=== PATIENT | male | born 1995 | race Caucasian/White ===

== ENCOUNTER 2016-12-12 11:09 | Day surgery (SDC) | payer OTHER ==
[~2016-12-12] VITALS: Ht 170.2 cm; Wt 65.8 kg
[~2016-12-12 11:09] MED LIST: CIPR-193 PO; FER325 PO; METO-448 PO; NIFE30TA2 PO; PUMP INSULIN MC
[2016-12-12 11:55] VITALS: Ht 170.2 cm; Wt 65.8 kg
[2016-12-12] MEDS ORDERED: LOPE2CAP PO (11:58)
[2016-12-12 12:15] VITALS: BP 102/58; PULSE 85; RESP 14
[2016-12-12] MEDS ORDERED: PROPOFOL 20 ML ONE (12:17)
[2016-12-12] MEDS ORDERED: FENTAnyl 50 MCG/ML VIAL ONE (12:18)
[2016-12-12 13:15] VITALS: BP 100/69; PULSE 79; RESP 16
--- NOTE | 2016-12-12 15:13 | GILP ---
DATE OF PROCEDURE: 12/12/2016 NAME OF PROCEDURE: Esophagogastroduodenoscopy and biopsy. SURGEON: Sarah Delgado MD PREOPERATIVE DIAGNOSES: 1. Vomiting. 2. Chronic diarrhea. POSTOPERATIVE DIAGNOSES: 1. Reflux esophagitis. 2. Gastritis. 3. Gastric stasis with liquid in the stomach. 4. Gastric mucosal biopsies were taken for Helicobacter pylori test. 5. Small bowel biopsies were taken to rule out celiac disease. INDICATION FOR THE PROCEDURE: Mr. Viktor Lemons is a 21-year-old male patient who had history of vomit ing and chronic diarrhea. The patient underwent colonoscopy at some other placed and no abnormality was detected. The patient was scheduled for endoscopy for further evaluation. The procedure and possible complications are well explained to the patient, he understood and consen wilbert to the procedure. DESCRIPTION OF PROCEDURE: Under the influence of anesthesia, the gastroscope was carefully introduc ed into the esophagus and under direct vision, it was advanced to the stomach and through the pyloru s into the duodenal bulb and descending duodenum. FINDINGS: ESOPHAGUS: The patient had reflux esophagitis with erosions. STOMACH: He had gastritis and gastric stasis in the stomach with retained fluid. Gastric mucosal b iopsies were taken for H. pylori test. DUODENUM: Normal. Small bowel biopsies were taken to rule out celiac disease. He tolerated the procedure very well and there was no complication from the procedure. At the end o f the procedure, he was awake with stable vital signs and he was discharged home to the care of his family. IMPRESSION: 1. Reflux esophagitis with erosions. 2. Gastritis with gastric stasis and fluid in the stomach. 3. Gastric mucosal biopsies were taken for Helicobacter pylori test. 4. Small bowel biopsies were taken to rule out celiac disease. PLAN: 1. Omeprazole 40 mg p.o. q.a.m. 2. Await histopathology reports. 3. If the patient continues to vomit, it may be due to gastroparesis and patient may need solid gas tric emptying study. Dictated By: SARAH HOWARD/ODESSA Conf#: [id number] DID#: [id number]
--- NOTE | 2016-12-13 10:47 | CONS ---
DATE OF ADMISSION: 12/12/2016 DATE OF CONSULTATION: Dear Dr. Sullivan: I thank you very much for this kind referral. HISTORY OF PRESENT ILLNESS: Mr. Joseph Lemons is a 21-year-old male patient who has been referred to me for further evaluation of vomiting and chronic diarrhea. The patient states he has got frequent episodes of vomiting, not have any abdominal pain. There is no history of peptic ulcer disease. He is not taking any nonsteroidal anti-inflammatory agents. His appetite has been poor and he states that he has been losing weight. There is no history of gallstones. He does not have any fever, chi lls or jaundice. There is no history of liver disease. The patient also complains of chronic diarr hea. There is no history of rectal bleeding. There is no history of inflammatory bowel disease. T he patient states he had a colonoscopy done 2 years ago and no abnormality was detected. He is not a hypertensive. He has diabetes and he is on insulin pump. There is no history of heart disease or lung problem. Patient has got chronic kidney disease. SOCIAL HISTORY: He is a smoker. He denies alcohol abuse. FAMILY HISTORY: Negative for gastrointestinal tract neoplasm. ALLERGIES: THERE IS NO HISTORY OF SIGNIFICANT DRUG ALLERGY. MEDICATIONS: 1. Insulin 2. Imodium. PHYSICAL EXAMINATION: VITAL SIGNS: He is 5 feet 7 inches tall and he weighs 140 pounds. HEART: Examination of the heart reveals normal first and second heart sounds. LUNGS: Clear. ABDOMEN: Soft without any distention. Liver and spleen are not palpable. There are no masses. Th ere is no focal tenderness. Normal bowel sounds are heard. CENTRAL NERVOUS SYSTEM: Does not reveal any focal neurological deficit. IMPRESSION: 1. Vomiting. 2. Chronic diarrhea. 3. The patient states he had colonoscopy 2 years ago and no abnormality was found. 4. Diabetes mellitus. 5. The patient is on insulin pump. 6. Chronic kidney disease. 7. The patient is a smoker. PLAN: Upper endoscopy for further evaluation of vomiting. At the time of upper endoscopy, small bowel biopsies will be taken to rule out celiac disease. The patient will need monitored anesthesia care for the procedure. The procedure and possible complications are well explained to the patient and his mother; they unde rstand and consent to the procedure. I thank you once again. With warmest personal regards, Dictated By: AMA HOWARD/ODESSA Conf#: [id number] DID#: [id number] CC: AMA VINCENT MD;*End*
== END 2016-12-12 15:24 | disposition home or self-care (01) ==
LOC: GIL 11:09
PROVIDERS: ATTEND Internal Medicine Gastroenterology
DX: K21.0 Gastro-esophageal reflux disease with esophagitis (principal); K29.60 Other gastritis without bleeding; E11.9 Type 2 diabetes mellitus without complications; Z79.4 Long term (current) use of insulin; Z96.41 Presence of insulin pump (external) (internal); F17.200 Nicotine dependence, unspecified, uncomplicated
CPT/HCPCS: 43239; 82962; 87081; 88305; J3010; Z7610

== ENCOUNTER 2017-02-22 06:29 | Day surgery (SDC) | payer OTHER ==
[2017-02-21 08:41] VITALS: BMI 21.6
[2017-02-22] VITALS (10 sets, daily range): BP systolic 91–146; BP diastolic 24–80; PULSE 76–98; RESP 18–24; Ht 170.2 cm; Wt 64.5 kg
[~2017-02-22] VITALS: Ht 170.2 cm; Wt 64.5 kg
[~2017-02-22 06:29] MED LIST changes: -CIPR-193 PO; +LOPE2CAP PO; -METO-448 PO; -NIFE30TA2 PO; +RENAVITE
--- NOTE | 2017-02-22 07:19 | HPN ---
Date/Time of Note Date/Time of Note DATE: 02/22/17 TIME: 07:19 Interval H&P Admission Note Pt. seen H&P reviewed: No system changes ESEQUIEL RUSHING MD February 22, 2017 07:19
[2017-02-22 07:27] LABS: ADD SCAN DIFF NO
--- NOTE | 2017-02-22 07:37 | RADRPT ---
PROCEDURE: XR Chest. CLINICAL INDICATION: Preop TECHNIQUE: A single AP view of the chest was obtained. COMPARISON: Chest x-ray dated 06/18/2016 FINDINGS: There is a right chest Perma-Cath with tip near the cavoatrial junction. No focal airspace opacification, pleural effusion or pneumothorax is seen. The cardiomediastinal si lhouette is within normal limits for size. The osseous structures are unremarkable. IMPRESSION: 1. No radiographic evidence of acute cardiopulmonary disease. 2. Right chest Perma-Cath with tip near the cavoatrial junction. RPTAT: HH .Dorina Rubio MD, MD Date Time Electronically viewed and signed by .Dorina Rubio MD, on 02/22/2017 07:36 .Estrellita/
[2017-02-22] MEDS ORDERED: LIDOCAINE 1% (MPF) 30 ML INJ ONE (07:40)
[2017-02-22] MEDS ORDERED: HEPARIN 1000 UNITS/ML 10 ML INJ ONE (07:40)
[2017-02-22] MEDS ORDERED: GELATIN SIZE 100 SPONGE ONE (07:40)
[2017-02-22] MEDS ORDERED: THROMBIN 5000 UNIT VIAL ONE (07:40)
[2017-02-22 07:47] LABS: INR 1.02; PARTIAL THROMBOPLASTIN TIME 28.5 Sec (25.0-35.0); PROTIME 13.4 Sec (12.2-14.2)
[2017-02-22 07:50] LABS: ALBUMIN 4.1 g/dl (3.3-4.9); ALBUMIN/GLOBULIN RATIO 1.13; CALCIUM 9.3 mg/dl (8.4-10.2); CREATININE 3.69 mg/dl (0.61-1.24); POTASSIUM 5.1 mmol/L (3.5-5.1); TOTAL PROTEIN 7.7 g/dl (6.1-8.1)
[2017-02-22] MEDS ORDERED: SODI650T PO (07:50)
[2017-02-22 07:52] LABS: BASOPHIL # 0.1 10^3/ul (0.0-0.1); BASOPHILS % 0.5 % (0.0-2.0); EOSINOPHILS # 0.3 10^3/ul (0.0-0.5); EOSINOPHILS % 2.9 % (0.0-7.0); HEMATOCRIT 32.8 % (42.0-52.0); HEMOGLOBIN 10.4 g/dl (14.0-18.0); LYMPHOCYTES # 1.7 10^3/ul (0.8-2.9); LYMPHOCYTES % 15.4 % (15.0-51.0); MEAN CORPUSCULAR HEMOGLOBIN 30.8 pg (29.0-33.0); MEAN CORPUSCULAR HGB CONC 31.7 g/dl (32.0-37.0); MEAN PLATELET VOLUME 10.1 fl (7.4-10.4); MONOCYTE # 0.7 10^3/ul (0.3-0.9); MONOCYTES % 6.4 % (0.0-11.0); NEUTROPHIL # 8.3 10^3/ul (1.6-7.5); NEUTROPHILS % 74.5 % (39.0-77.0); PLATELET COUNT 227 10^3/UL (140-415); RED BLOOD COUNT 3.38 10^6/ul (4.70-6.10); RED CELL DISTRIBUTION WIDTH 14.6 % (11.5-14.5); WHITE BLOOD COUNT 11.1 10^3/ul (4.8-10.8)
[2017-02-22] MEDS ORDERED: MIDAZOLAM 1 MG/ML 2 ML INJ ONE (07:53)
[2017-02-22] MEDS ORDERED: LIDOCAINE 1% (MDV) 20 ML INJ ONE (07:53)
[2017-02-22] MEDS ORDERED: PROPOFOL 100 ML ONE (07:53)
[2017-02-22] MEDS ORDERED: ROPIVACAINE 0.5 % 30 ML VIAL ONE (07:54)
[2017-02-22] MEDS ORDERED: LIDOCAINE 1% (MPF) 30 ML INJ INJ ONE (08:00)
[2017-02-22] MEDS ORDERED: MEPERIDINE 25 MG INJ IV PRN (08:00)
[2017-02-22] MEDS ORDERED: HEPARIN 1000 UNITS/ML 10 ML INJ IRR ONE (08:00)
[2017-02-22] MEDS ORDERED: PROCHLORPERAZINE 10 MG INJ IV PRN (08:00)
[2017-02-22] MEDS ORDERED: DIPHENHYDRAMINE 50 MG INJ IV PRN (08:00)
[2017-02-22] MEDS ORDERED: EPHEDrine SULFATE 50 MG/5 ML SYG IV PRN (08:00)
[2017-02-22] MEDS ORDERED: OXYCODONE/ACETAMINOPHEN (5/325) TAB PO PRN ×2 (08:00)
[2017-02-22] MEDS ORDERED: ONDANSETRON 4 MG INJ IV PRN (08:00)
[2017-02-22] MEDS ORDERED: hydrALAzine 20 MG INJ IV PRN (08:00)
[2017-02-22] MEDS ORDERED: HYDROmorphONE (0.2 MG/ML) 10ML SYG IV PRN (08:00)
[2017-02-22] MEDS ORDERED: THROMBIN 5000 UNIT VIAL TOP ONE (08:00)
[2017-02-22] MEDS ORDERED: LABETALOL HCL 20MG INJ IV PRN (08:00)
[2017-02-22] MEDS ORDERED: FENTAnyl 50 MCG/ML VIAL IV PRN (08:00)
[2017-02-22] MEDS ORDERED: GELATIN SIZE 100 SPONGE TOP ONE (08:00)
[2017-02-22] MEDS ORDERED: INSULIN ASPART [NOVOLOG] 3 ML PEN SC ONE ×2 (08:00)
[2017-02-22] MEDS ORDERED: ONDANSETRON 4 MG INJ ONE (08:33)
[2017-02-22] MEDS ORDERED: METOCLOPRAMIDE 10 MG INJ ONE (08:33)
[2017-02-22] MEDS ORDERED: CEFAZOLIN 1 GM INJ ONE (08:33)
--- NOTE | 2017-02-22 10:16 | OPR ---
DATE OF OPERATION: 02/22/2017 PREOPERATIVE DIAGNOSIS: End-stage renal disease. POSTOPERATIVE DIAGNOSIS: End-stage renal disease. PROCEDURE PERFORMED: Creation of left radiocephalic AV fistula. SURGEON: Esequiel Almanzar MD ANESTHESIA: Local with scalene block. ESTIMATED BLOOD LOSS: Minimal. COMPLICATIONS: No intraprocedural complications. INDICATIONS: A 22-year-old gentleman with end-stage renal disease on dialysis. He will need ongoin g hemodialysis in the future. I vein mapped his left arm. He has a good cephalic vein in the forea rm and a good basilic vein in the upper arm. The cephalic vein in the upper arm is not visible. Th e radial artery is small but patent and soft and did not appear diseased. I decided to do a radioce phalic fistula hoping the radial artery with dilate with increased flow. DESCRIPTION OF PROCEDURE: The patient was brought to the operating room and placed on the table in supine position. After the block was placed, left arm was prepped and draped in the usual sterile f ashion. I had marked the cephalic vein in the distal forearm as well as radial artery and made a cu rvilinear incision beginning distally over the cephalic vein and extending more proximally onto the radial artery. I divided the subcutaneous tissues using electrocautery and carefully dissected out the cephalic vein, ligated the distal branches, and divided it. I clipped off the more lateral of t he branches. I then dissected out the radial artery. It was small to begin with, and when it went into spasm, it was really tiny; a very, very small vessel, but patent. Once I exposed it, I clamped it proximally and distally, made about 1 cm long anterior arteriotomy, spatulated the end of the ce phalic vein to fit the arteriotomy, and anastomosed the end of the vein to the side of the artery us ing 6-0 Prolene suture in a running standard vascular surgical fashion. I closed the anastomosis. There was good flow. The spasm began to relieve. I could feel a pulse in the cephalic vein when I compressed it. It was not a real strong thrill, but when I compressed the vein, I could feel pulsat ion in the artery. The spasm was just relieving. There was good hemostasis. I closed the skin inc ision in 2 layers using an inner layer of 3-0 Vicryl and an outer layer of 4-0 Monocryl subcuticular sutures. Sterile dressing was applied. The patient was transferred to the recovery room in stable condition. He tolerated the procedure well without any complication. Dictated By: ESEQUIEL CORONEL/ODESSA Conf#: [id number] DID#: [id number] CC: DEREJE JOHNS MD;*EndCC*
--- NOTE | 2017-02-22 11:29 | RADRPT ---
Vent Rate: 97 bpm RR Interval: 0 msec [place] Interval: 148 msec QRS Duration: 92 msec QT Interval: 350 msec QTC Interval: 444 msec P-R-T [place]: 48 - 97 - 52 degrees Normal sinus rhythm Rightward axis Incomplete right bundle branch block Borderline ECG Electronically Signed By: [place] [id number]
--- NOTE | 2017-02-23 08:49 | OPPN ---
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 Pt received L supraclavicular brachial plexus nerve block under US guidance. Pt was contacted at home at number listed in EMR and has return of motor function and sensation of LUE. Pt is pain controlled, tolerating diet , denies any problems with anesthesia. ROMULO MOON MD February 23, 2017 08:49
== END 2017-02-22 12:40 | disposition home or self-care (01) ==
LOC: SDS 06:29
PROVIDERS: ATTEND Surgery Vascular Surgery
DX: I12.0 Hypertensive chronic kidney disease with stage 5 chronic kidney disease or end stage renal disease (principal); N18.6 End stage renal disease; E10.9 Type 1 diabetes mellitus without complications
CPT/HCPCS: 36821; 71010; 80053; 82962; 85025; 85610; 85730; 93005; J0690; J1644; J1815; J2250; J2405; J2765; J2795; Z7512; Z7610; C1725

== ENCOUNTER 2017-05-11 16:45 | Emergency (ER) | payer SELFPAY ==
[~2017-05-11] VITALS: Ht 170.2 cm; Wt 60.5 kg
[~2017-05-11 16:45] MED LIST changes: +SODI650T PO
[2017-05-11 16:48] VITALS: Ht 170.2 cm; Wt 60.5 kg
== END 2017-05-11 18:30 | disposition left against medical advice (07) ==
LOC: E/R 16:45
DX: Z53.21 Procedure and treatment not carried out due to patient leaving prior to being seen by health care provider (principal)

== ENCOUNTER 2017-05-31 06:29 | Day surgery (SDC) | payer OTHER ==
[~2017-05-31] VITALS: Ht 170.2 cm; Wt 63.5 kg
[2017-05-31] MEDS ORDERED: LIDOCAINE 1% (MDV) 20 ML INJ ONE (07:10)
[2017-05-31] MEDS ORDERED: IODIXANOL LOCM 100 ML BTL ONE (07:10)
[2017-05-31 07:31] VITALS: BP 98/60; PULSE 95; RESP 18; Ht 170.2 cm; Wt 63.5 kg
[2017-05-31] MEDS ORDERED: ZOF8 PO (07:37)
[2017-05-31] MEDS ORDERED: SULF1TAB31 PO (07:37)
[2017-05-31 08:20] VITALS: BP 132/74; PULSE 85; RESP 18
--- NOTE | 2017-05-31 08:23 | SIPON ---
Date/Time of Note Date/Time of Note DATE: 05/31/17 TIME: 08:22 Operative Report Preoperative Diagnosis L arm AVF non maturation Postoperative Diagnosis same Operation/Procedure Performed L arm AVF gram, SEEDLING SORTER radial artery and AV anastomosis Surgeon: ESEQUIEL RUSHING MD Anesthesia Type: other Estimated Blood Loss: none Transfusion Required: no Specimen: none Grafts/Implants: none Complications: no ESEQUIEL RUSHING MD May 31, 2017 08:23
--- NOTE | 2017-05-31 09:08 | OPR ---
DATE OF OPERATION: 05/31/2017 PREOPERATIVE DIAGNOSIS: Nonmaturing left arm atrioventricular fistula. POSTOPERATIVE DIAGNOSIS: Nonmaturing left arm atrioventricular fistula. OPERATION PERFORMED: 1. Left arm AV fistulogram. 2. Percutaneous angioplasty of the left radial artery and arterial venous anastomosis of the AV fistula. SURGEON: Michael Almanzar MD ANESTHESIA: Local. ESTIMATED BLOOD LOSS: Minimal. COMPLICATIONS: No intraprocedural complications. INDICATIONS: This is a 22-year-old gentleman who has end-stage renal disease, on dialysis via PermCath. He has a left radiocephalic AV fistula that was created several months ago. Has a good thrill, but the vein has just been very slow to develop, so I brought him in today for a fistulogram and possible intervention. The radial artery was narrowed at the anastomosis and I ballooned that with good outcome. OPERATIVE PROCEDURE: Patient was brought to the seed laboratory technician, placed on table in supine position. Left arm was prepped and draped in the usual sterile fashion. His ultrasound to evaluate the fistula at the radiocephalic and the cephalic vein actually looks fairly good caliber. It is dilated up nicely, but I can see on ultrasound that it is narrowing right at the anastomosis to the radial artery. It looks like the radial artery itself was narrowed. So, I infiltrated over the cephalic vein just below the elbow with about 5 mL of 1 percent xylocaine and his micropuncture needle to enter the vein under ultrasound guidance pointing toward the wrist advanced an 018 wire through the needle and into the vein and then a micropuncture sheath was advanced over the wire into the vein and then a fistulogram with compression views that showed the cephalic vein fistula is patent with fairly severe narrowing at the radial artery anastomosis. It looks like a string of flow going through. The cephalic vein is patent to the elbow. Then, the upper arm cephalic vein is very atretic most of the outflow from the fistula is going into the brachial vein and up into the upper arm. I then advanced an 0.35 Glidewire down across the arterial anastomosis. I exchanged the micropuncture sheath for a 5-Taiwanese sheath over the wire. I then advanced a 3 mm x 6 cm balloon over the wire and into the radial artery. Then and then angioplastied the radial artery and the radial artery anastomosis to the cephalic vein to 8 atmospheres. A completion angiogram showed that the anastomosis is widely patent. The radial artery is now widely patent. There was good caliber. So we removed all the catheter sheaths and wires and held pressure on the puncture site with good hemostasis. He tolerated the procedure well without any complications. Transferred to the recovery room in stable condition. Dictated By: Michael Almanzar MD /delmy/jaun /Document#: [id number]
== END 2017-05-31 08:37 | disposition home or self-care (01) ==
LOC: SDS 06:29
PROVIDERS: ATTEND Surgery Vascular Surgery
DX: T82.898A Other specified complication of vascular prosthetic devices, implants and grafts, initial encounter (principal); Y84.1 Kidney dialysis as the cause of abnormal reaction of the patient, or of later complication, without mention of misadventure at the time of the procedure; Y92.89 Other specified places as the place of occurrence of the external cause; I12.0 Hypertensive chronic kidney disease with stage 5 chronic kidney disease or end stage renal disease; N18.6 End stage renal disease; E11.9 Type 2 diabetes mellitus without complications
CPT/HCPCS: 36901; 82962; 84132; C1725; C1769; C1887; C1894; J1644; Q9967; Z7610

== ENCOUNTER 2017-08-16 22:37 | Emergency (ER) | payer SELFPAY ==
[~2017-08-16] VITALS: Ht 170.2 cm; Wt 62.2 kg
[~2017-08-16 22:37] MED LIST changes: +SULF1TAB31 PO; +ZOF8 PO
[2017-08-16 22:42] VITALS: Ht 170.2 cm; Wt 62.2 kg
== END 2017-08-17 00:18 | disposition left against medical advice (07) ==
LOC: FTE 22:37
DX: Z53.21 Procedure and treatment not carried out due to patient leaving prior to being seen by health care provider (principal)

== ENCOUNTER 2017-09-07 09:51 | Inpatient (IN) | payer OTHER ==
[~2017-09-07] VITALS: Ht 170.2 cm; Wt 63.0 kg
[2017-09-07 09:56] VITALS: Ht 170.2 cm; Wt 63.0 kg
[2017-09-07] MEDS ORDERED: SODIUM CHLORIDE 0.9% 1L BAG IV* STA (10:29)
[2017-09-07] MEDS ORDERED: CEFEPIME 2GM/50 ML (PMX) 50 ML IVPB STA (10:29)
[2017-09-07] MEDS ORDERED: ONDANSETRON 4 MG INJ IV STA (10:29)
[2017-09-07] MEDS ORDERED: HYDROmorphONE 1 MG/ML SYG IV STA ×2 (10:29→14:25)
[2017-09-07] MEDS ORDERED: LORAZEPAM 2 MG INJ IV ONE (10:30)
[2017-09-07] MEDS ORDERED: VANCOMYCIN 1 GM (PMX) 250 ML IVPB ONE (10:30)
--- NOTE | 2017-09-07 10:48 | RADRPT ---
PROCEDURE: XR Chest. CLINICAL INDICATION: Vomiting. Sepsis. Upper respiratory tract infection. TECHNIQUE: Frontal chest x-ray was obtained. COMPARISON: Chest x-ray June 18, 2016 FINDINGS: There has been interval insertion of a right IJ Perma-Cath. Heart is not enlarged. Mediastinum is not widened. No hilar masses seen. Lungs are clear of any infi ltrates. There is no effusion or pneumothorax. IMPRESSION: No evidence for active cardiopulmonary disease. .Vladislav Tavares MD, MD Date Time Electronically viewed and signed by .Vladislav Tavares MD, MD on 09/07/2017 10:48 .A/
[2017-09-07 11:31] LABS: BASOPHIL # 0.1 10^3/ul (0.0-0.1); BASOPHILS % 0.5 % (0.0-2.0); EOSINOPHILS % 0.2 % (0.0-7.0); HEMATOCRIT 40.5 % (42.0-52.0); LYMPHOCYTES # 1.9 10^3/ul (0.8-2.9); LYMPHOCYTES % 10.8 % (15.0-51.0); MEAN CORPUSCULAR HEMOGLOBIN 31.7 pg (29.0-33.0); MEAN CORPUSCULAR HGB CONC 34.6 g/dl (32.0-37.0); MEAN CORPUSCULAR VOLUME 91.8 fl (82.0-101.0); MONOCYTE # 0.4 10^3/ul (0.3-0.9); MONOCYTES % 2.5 % (0.0-11.0); NEUTROPHIL # 15.3 10^3/ul (1.6-7.5); NEUTROPHILS % 85.6 % (39.0-77.0); PLATELET COUNT 408 10^3/UL (140-415); RED BLOOD COUNT 4.41 10^6/ul (4.70-6.10); RED CELL DISTRIBUTION WIDTH 12.8 % (11.5-14.5); WHITE BLOOD COUNT 17.9 10^3/ul (4.8-10.8)
[2017-09-07 11:48] LABS: INR 0.95; PROTIME 12.8 Sec (11.9-14.9)
[2017-09-07 12:05] LABS: ALANINE AMINOTRANSFERASE 49 IU/L (13-69); ALBUMIN 5.3 g/dl (3.3-4.9); ALBUMIN/GLOBULIN RATIO 1.03; ALKALINE PHOSPHATASE 179 IU/L (42-121); ANION GAP 31 (8-16); ASPARTATE AMINO TRANSFERASE 30 IU/L (15-46); BILIRUBIN,INDIRECT 0.3 mg/dl (0-1.1); BILIRUBIN,TOTAL 0.3 mg/dl (0.2-1.3); BLOOD UREA NITROGEN 48 mg/dl (7-20); CALCIUM 11.2 mg/dl (8.4-10.2); CARBON DIOXIDE 16 mmol/L (21-31); CHLORIDE 104 mmol/L (97-110); CREATININE 5.19 mg/dl (0.61-1.24); GLUCOSE 255 mg/dl (70-220); POTASSIUM 4.8 mmol/L (3.5-5.1); SODIUM 146 mmol/L (135-144); TOTAL PROTEIN 10.4 g/dl (6.1-8.1)
[2017-09-07 12:19] LABS: TROPONIN-I < 0.012 ng/ml (0.00-0.12)
[2017-09-07] MEDS ORDERED: NEPH PO (12:59)
[2017-09-07] MEDS ORDERED: METH-360 PO (12:59)
[2017-09-07] MEDS ORDERED: LACT1CAP47 PO (12:59)
[2017-09-07] MEDS ORDERED: GEN20I CATHETER (13:03)
[2017-09-07 13:24] LABS: ADD UMIC YES; UR ASCORBIC ACID NEGATIVE (NEGATIVE); UR BILIRUBIN (Dip) NEGATIVE (NEGATIVE); UR BLOOD (Dip) 2+ mg/dL (NEGATIVE); UR CLARITY TURBID (CLEAR); UR COLOR AMBER (YELLOW); UR GLUCOSE (Dip) 2+ mg/dL (NEGATIVE); UR KETONES (Dip) TRACE mg/dL (NEGATIVE); UR LEUKOCYTE ESTERASE (Dip) 2+ Leu/ul (NEGATIVE); UR NITRITE (Dip) NEGATIVE (NEGATIVE); UR NONSQUAMOUS EPITHELIAL CELL 5 /HPF (NONE SEEN); UR RBC > 182 /HPF (0-5); UR SPECIFIC GRAVITY (Dip) 1.022 (1.003-1.030); UR SQUAMOUS EPITHELIAL CELL FEW /HPF (FEW); UR TOTAL PROTEIN (Dip) 3+ mg/dl (NEGATIVE); UR UROBILINOGEN (Dip) NEGATIVE (NEGATIVE)
[2017-09-07] MEDS ORDERED: INSULIN LISPRO 100 UNIT/ML VIAL SC STA (13:28)
[2017-09-07] MEDS ORDERED: ACETAMINOPHEN 325 MG TAB PO PRN ×2 (13:30→15:00)
[2017-09-07] MEDS ORDERED: ONDANSETRON 4 MG INJ IV PRN (13:30)
--- NOTE | 2017-09-07 13:33 | ERD ---
ER Documentation Chief Complaint Chief Complaint painful urination , back pain , vomiting onset last night HPI This is a 22-year-old male history of severe diabetes, end-stage renal disease on dialysis with recurrent urinary tract infections who presents with dysuria and back pain. He describes generalized back pain that is severe, 8 out of 10 with associated nausea and vomiting. He states the symptoms are very similar to when he has urinary tract infections. The patient states that he was just discharged from an outside hospital several days ago for similar symptoms. He denies any chest pain or shortness of breath. ROS All systems reviewed and are negative except as per history of present illness. Medications Home Meds Reported Medications Gentamicin Sulfate* (Gentamicin Sulfate* Inj) 10 Mg/Ml Soln, 1 DOSE CATHETER Q3H , VIAL GENTAMYCIN FLUSH VIA CATHER (BLADDER) RINSE AND FLUSH AREA EVERY 3 HOURS AROUND THE CLOCKPER PT 09/07/17 Lactobacillus Acidophilus (Probiotic) 1 Each Capsule, 1 CAP PO DAILY, CAP 09/07/17 Methylcellulose (FIBER) 500 Mg Tablet, 500 MG PO PC LUNCH, TAB 09/07/17 Multivit/Ca Carb/B Cmplx/Fa* (Harini-Michael*) 1 Tab Tab, 1 TAB PO DAILY, TAB 09/07/17 Sodium Bicarbonate* (Sodium Bicarbonate*) 650 Mg Tablet, 650 MG PO DAILY, TAB 02/22/17 Loperamide Hcl* (Imodium*) 2 Mg Capsule, 6 MG PO PC DINNER Y for DIARRHEA, CAP MAX 16 mg/day 12/12/16 Ferrous Sulfate* (Ferrous Sulfate*) 325 Mg Tabec, 325 MG PO TID, TAB 06/10/16 Insulin* PUMP (Insulin* PUMP) 1 Each Pump.resvr, 1 EACH MC . DIRECTED, EA 05/18/15 Discontinued Reported Medications Sulfamethoxazole/Trimethoprim* (Bactrim Ds* Tablet) 1 Each Tablet, 1 TAB PO BID , TAB 05/31/17 Ondansetron Hcl* (Zofran*) 8 Mg Tab, 8 MG PO Q8, TAB 05/31/17 [Renavite] No Conflict Check 02/21/17 Allergies Allergies: Coded Allergies: No Known Allergy (Verified , 09/07/17) PMhx/Soc History of Surgery: Yes (PERMACATH 02/13, FISTULA 02/13) Anesthesia Reaction: No Hx Neurological Disorder: No Hx Respiratory Disorders: No Hx Cardiac Disorders: No Hx Psychiatric Problems: No Hx Miscellaneous Medical Probl: No (esrd DM ) Hx Alcohol Use: No Hx Substance Use: No Hx Tobacco Use: No Smoking Status: Never smoker FmHx Family History: diabetes Physical Exam Vitals Vital Signs Date Time Temp Pulse Resp B/P Pulse Ox O2 Delivery O2 Flow Rate FiO2 09/07/17 13:21 Nasal Cannula 2 09/07/17 09:56 98.6 118 18 141/67 99 Physical Exam General: Uncomfortable male Head: Normocephalic, atraumatic. Eyes: Pupils equally reactive, EOM intact ENT: Moist mucous membranes Neck: Supple, no lymphadenopathy Respiratory: Lungs clear bilaterally, no distress Cardiovascular: Tachycardia, no murmurs, rubs, or gallops Abdominal: Soft, non-tender, non-distended, no peritoneal signs back, mild CVA tenderness bilaterally : Deferred MSK: No edema, no unilateral swelling, 5/5 strength Neurologic: Alert and oriented, moving all extremities, normal speech, no focal weakness, no cerebellar signs Skin: No rash Psych: Normal mood Result Diagram: 09/07/17 1110 09/07/17 1110 Results 24 hrs Laboratory Tests Test 09/07/17 11:05 09/07/17 11:10 09/07/17 13:00 Lactic Acid Level 2.8mmol/L White Blood Count 17.910^3/ul Red Blood Count 4.4110^6/ul Hemoglobin 14.0g/dl Hematocrit 40.5% Mean Corpuscular Volume 91.8fl Mean Corpuscular Hemoglobin 31.7pg Mean Corpuscular Hemoglobin Concent 34.6g/dl Red Cell Distribution Width 12.8% Platelet Count 45666^3/UL Mean Platelet Volume 10.0fl Neutrophils % 85.6% Lymphocytes % 10.8% Monocytes % 2.5% Eosinophils % 0.2% Basophils % 0.5% Nucleated Red Blood Cells % 0.0/100WBC Neutrophils # 15.310^3/ul Lymphocytes # 1.910^3/ul Monocytes # 0.410^3/ul Eosinophils # 0.010^3/ul Basophils # 0.110^3/ul Nucleated Red Blood Cells # 0.010^3/ul Prothrombin Time 12.8Sec Prothrombin Time Ratio 1.0 INR International Normalized Ratio 0.95 Activated Partial Thromboplast Time 32.0Sec Sodium Level 146mmol/L Potassium Level 4.8mmol/L Chloride Level 104mmol/L Carbon Dioxide Level 16mmol/L Anion Gap 31 Blood Urea Nitrogen 48mg/dl Creatinine 5.19mg/dl Glucose Level 255mg/dl Calcium Level 11.2mg/dl Total Bilirubin 0.3mg/dl Direct Bilirubin 0.00mg/dl Indirect Bilirubin 0.3mg/dl Aspartate Amino Transf (AST/SGOT) 30IU/L Alanine Aminotransferase (ALT/SGPT) 49IU/L Alkaline Phosphatase 179IU/L Troponin I < 0.012ng/ml Total Protein 10.4g/dl Albumin 5.3g/dl Globulin 5.10g/dl Albumin/Globulin Ratio 1.03 Urine Color PRASAD Urine Clarity TURBID Urine pH 6.0 Urine Specific Sebastian 1.022 Urine Ketones TRACEmg/dL Urine Nitrite NEGATIVEmg/dL Urine Bilirubin NEGATIVEmg/dL Urine Urobilinogen NEGATIVEmg/dL Urine Leukocyte Esterase 2+Elian/ul Urine Microscopic RBC > 182/HPF Urine Microscopic WBC > 182/HPF Urine Squamous Epithelial Cells FEW/HPF Urine Hemoglobin 2+mg/dL Urine Glucose 2+mg/dL Urine Total Protein 3+mg/dl Current Medications Medications (Trade) Dose Ordered Sig/Devika Route PRN Reason Start Time Stop Time Status Last Admin Dose Admin Sodium Chloride 1950 ml 1,950 ml BOLUS OVER 2 HOURS STAT IV* 09/07/17 10:29 09/07/17 10:32 DC 09/07/17 10:29 Cefepime HCl 50 ml @ 100 mls/hr ONCE STAT IVPB 09/07/17 10:29 09/07/17 10:58 DC 09/07/17 10:29 Vancomycin HCl (Vancocin) 250 ml @ 125 mls/hr ONCE ONCE IVPB 09/07/17 10:30 09/07/17 12:29 DC 09/07/17 10:30 Hydromorphone HCl (Dilaudid) 1 mg ONCE STAT IV 09/07/17 10:29 09/07/17 10:32 DC 09/07/17 10:29 Ondansetron HCl (Zofran Inj) 4 mg ONCE STAT IV 09/07/17 10:29 09/07/17 10:32 DC 09/07/17 10:29 Lorazepam (Ativan) 1 mg ONCE ONCE IV 09/07/17 10:30 09/07/17 10:32 DC 09/07/17 10:30 Ondansetron HCl (Zofran Inj) 4 mg BRIDGE ORDER PRN IV NAUSEA AND/OR VOMITING 09/07/17 13:30 09/08/17 13:29 Acetaminophen (Tylenol Tab) 650 mg ER BRIDGE PRN PO MILD PAIN/FEVER 09/07/17 13:30 09/08/17 13:29 Procedures/MDM EKG, MONITORS, & DIAGNOSTIC IMAGING: EKG: I reviewed and interpreted a 12-lead EKG. Rhythm: Sinus tachycardia Ectopy: None Intervals: No abnormalities ST segments: No elevations or depressions T waves: No contiguous inversions Chest x-ray: I reviewed and interpreted a 1 view of the chest Mediastinum: No enlargement Cardiac silhouette: No cardiomegaly Airspace: Clear lung jenkins bilaterally without evidence of pneumothorax Bones: No evidence of fracture LAB INTERPRETATION: Leukocytosis of 17 with elevated BUN and creatinine consistent with chronic renal insufficiency. Slight hyperglycemia. Lactic acid elevation MEDICAL DECISION MAKING: The patient presents with back pain, flank pain, signs and symptoms consistent with urinary tract infection as he has had in the past. He makes a small amount of urine. The patient was recently discharged for similar symptoms. The patient has had a complicated urinary tract infections in the past. ER COURSE: The patient was written for 30 cc/kg bolus of saline. He seems to be tolerating the fluids well. Blood cultures taken. Empiric antibiotics in the form of vancomycin and cefepime provided. The patient has Sirs criteria with source consistent with sepsis and severe sepsis. The patient does have an anion gap acidosis I do not believe this is related to diabetic ketoacidosis as the patient's glucose is only 255 but he does have an anion gap. He was given subcutaneous insulin. I do not believe insulin drip is necessary. Continue to monitor his response. Patient was given IV fluids and symptom control medication. He is stable for hospitalization. No indication for intubation or central line I kept the patient and/or family informed of laboratory and diagnostic imaging results throughout the emergency room course. DISPOSITION PLAN: Medical surgical admission CONSULTATION: Accepting care team and consultations: I discussed the current laboratory data, diagnostic imaging and emergency care provided. Admitting team: Dr. Cervantes Admitting team indication: Insurance directed Sepsis Documentation: Patient's infectious symptoms have not stabilized and the patient is at risk of rapid decompensation. The patient will be admitted for careful hydration, antibiotic therapy, and infectious source control. SEVERE SEPSIS CRITERIA: Infectious source: Urinary tract infection End organ damage indicated by: [Lactate > 2.0 mmol/L SEPSIS MANAGEMENT Time of recognition of severe sepsis/septic shock: Upon arrival 3 HOUR BUNDLE Blood cultures x 2 before broad-spectrum antibiotics: Yes 30 ml/kg NS bolus Completed Initial lactate 2.8 Repeat lactate pending repeat SEPTIC SHOCK ASSESSMENT: No lactic acid > 4.0 No persistent hypotension (SBP < 90 or 40 mmHg drop, MAP < 65) despite 30 mL/kg IV fluid bolus VOLUME REASSESSMENT FOR SEPTIC SHOCK: Reevaluation Time: 1:15 PM Temperature 98.2 heart rate 92 blood pressure 104/75 pulse ox 100% respiratory rate 18 Heart Regular rate & rhythm Lungs No crackles Skin Warm & dry Cap Refill Less than 2 seconds Peripheral pulses Radially present PERSISTENT HYPOTENSION TREATMENT: Comfort care No Central line Not Required Vasopressor started Not required I considered further perfusion assessment with CVP measurement, SCVO2, bedside ultrasound volume assessment, passive leg raise, trial of further fluid bolus. And proceeded with 30 ml/kg fluid bolus of NSS, broad spectrum antbiotics, and admission. CRITICAL CARE Critical care time 35 minutes Emergent fluid management while maintaining close respiratory support. Provision of immediate and broad-spectrum antibiotic therapy. Simultaneous assessment for possible sources in order to direct targeted therapy. Consideration for invasive and chemical support to prevent cardiopulmonary collapse. Critical care time is independent of procedures performed. Departure Diagnosis: Primary Impression: Hyperglycemia Additional Impressions: Severe sepsis Urinary tract infection Urinary tract infection type: acute pyelonephritis Qualified Code: N10 - Acute pyelonephritis End stage renal disease on dialysis Condition: Stable ZAFAR DEWEY MD Sep 07, 2017 13:33
[2017-09-07 15:00] VITALS: TEMP 98
[2017-09-07] MEDS ORDERED: hydrALAzine 20 MG INJ IV PRN (15:00)
[2017-09-07] MEDS ORDERED: ERTAPENEM SODIUM 1 GM in SOD CHLORIDE 0.9% 100 ML IVPB SCH (15:00)
[2017-09-07] MEDS ORDERED: MAGNESIUM HYDROXIDE 30ML CUP PO PRN (15:00)
[2017-09-07] MEDS ORDERED: LOPERAMIDE 2 MG CAP PO PRN ×2 (15:00→17:30)
[2017-09-07] MEDS ORDERED: NACL 0.9% 3 ML SYG IV SCH (15:00)
[2017-09-07] MEDS ORDERED: HYDROCODONE/APAP (5/325) TAB PO PRN (15:00)
[2017-09-07] MEDS ORDERED: NA PHOSPHATE/BIPHOS 133 ML ENEMA PR PRN (15:00)
[2017-09-07] MEDS ORDERED: LORAZEPAM 2 MG INJ IV PRN (15:00)
[2017-09-07] MEDS ORDERED: NITROGLYCERIN (SL) 0.4 MG TAB SL PRN (15:00)
[2017-09-07] MEDS ORDERED: GENTAMICIN IV PER PHARMACY XX SCH (15:00)
[2017-09-07] MEDS ORDERED: INSULIN PUMP MC SCH (15:00)
[2017-09-07] MEDS ORDERED: ALBUTEROL/IPRATROPIUM (NEB) 3 ML AMP HHN PRN (15:00)
[2017-09-07] MEDS ORDERED: DOCUSATE SODIUM 100 MG CAP PO PRN (15:00)
[2017-09-07 16:15] VITALS: BP 130/73; PULSE 90; RESP 20
[2017-09-07 16:17] LABS: INR 0.97; PARTIAL THROMBOPLASTIN TIME 21.3 Sec (25.0-35.0)
[2017-09-07] MEDS ORDERED: INSULIN ASPART [NOVOLOG] 3 ML PEN SC SCH (17:00)
[2017-09-07] MEDS: morphine 2 MG INJ IV PRN ×2 (17:30→21:11)
[2017-09-07] MEDS: SOD CHLORIDE 0.45% 1,000 ML IV SCH (17:30)
--- NOTE | 2017-09-07 17:38 | CONS ---
DATE OF ADMISSION: 09/07/2017 DATE OF CONSULTATION: 09/07/2017 TYPE OF CONSULTATION: Infectious Disease. REASON FOR CONSULTATION: Antibiotic management. HISTORY OF PRESENT ILLNESS: Joseph Lemons is a 22-year-old male with severe diabetes mellitus who com es in now with recurrent urinary tract infection. His past problems include: 1. Diabetes mellitus. 2. End-stage renal disease on hemodialysis. 3. Recurrent UTIs with dysuria and back pain. He has generalized back pain that is severe, 8/10, a ssociated with nausea and vomiting. His symptoms are very similar to when he has his usual urinary tract infection. He was discharged from an outside hospital several days ago with similar symptoms. The patient has a Perm-A-Cath placed 01/2017 in a fistula which was done in 01/2017. LABORATORY: His white count is 17.9, H and H of 14 and 40.5, platelet count 408,000. BUN and creat inine 48/5.19, random glucose 255. PAST MEDICAL HISTORY: Operations as outlined. FAMILY HISTORY: Noncontributory. SOCIAL HISTORY: He does not smoke, drink or abuse drugs. ALLERGIES: NONE TO PENICILLIN, SULFA OR FOODS. MEDICATIONS: Per chart. REVIEW OF SYSTEMS: As per HPI. PHYSICAL EXAMINATION: GENERAL: The patient is a well-developed, well-nourished male who was complaining of painful urinat ion and back pain. VITAL SIGNS: Stable. He is afebrile. SKIN: Without generalized rash. HEENT: Within normal limits. NECK: Supple. LYMPH NODES: None palpable. CHEST: Decreased breath sounds at the bases. HEART: Without murmur or gallop. ABDOMEN: Soft, nontender, without organosplenomegaly or masses. There is mild CVA tenderness bilat erally. EXTREMITIES: Without cyanosis, clubbing, or edema. RECTAL AND GENITAL: Deferred. NEUROLOGIC: No focal neurological abnormalities. IMPRESSION AND PLAN: The patient returns with recurrent urinary tract infections. He was started o n vancomycin and cefepime. Chest x-ray is clear, without evidence of pneumothorax or pneumonia. He has evidence of renal insufficiency. BUN and creatinine is 48/5.19. He has a Perm-A-Cath and a fi stula. Blood cultures were done. He was started on vancomycin and cefepime. He fit the systemic i nflammatory response syndrome criteria. We will continue him on these antibiotics until we get cult ures. I will dictate my findings to the hospitalist. Dictated By: CARLOS MOJICA MD, JD/ODESSA Conf#: [id number] DID#: [id number] CC: SANDIE SIERRA MD;*End*
[2017-09-07] MEDS ORDERED: GENTAMICIN IVPB ONE (18:00)
[2017-09-07] MEDS ORDERED: SOD CHLORIDE 0.9% IVPB ONE (18:00)
[2017-09-07 20:26] VITALS: BP 123/70; PULSE 70; RESP 18
[2017-09-07] MEDS: PT'S OWN INSULIN PUMP SC SCH (21:00)
[2017-09-07] MEDS: NICOTINE (14 MG/24 HR) PATCH TRANSDERM SCH (21:08)
[2017-09-07] MEDS: FERROUS SULFATE (EC) 325 MG TAB PO SCH (21:10)
[2017-09-07] MEDS: HEPARIN 5,000 UNIT/0.5 ML VIAL SC SCH (21:22)
[2017-09-07] MEDS: ERTAPENEM SODIUM 0.5 GM in SOD CHLORIDE 0.9% 100 ML IVPB SCH (22:17)
[2017-09-08] MEDS: ONDANSETRON 4 MG INJ IV PRN ×4 (01:18→17:20)
[2017-09-08] MEDS: morphine 2 MG INJ IV PRN ×6 (01:19→20:52)
[2017-09-08] MEDS ORDERED: ACCU-CHEK XX SCH (02:00)
[2017-09-08] MEDS: PANTOPRAZOLE (EC) 40 MG TAB PO SCH (05:04)
[2017-09-08] MEDS: SOD CHLORIDE 0.45% 1,000 ML IV SCH ×3 (05:06→20:58)
[2017-09-08 05:24] LABS: BASOPHIL # 0.1 10^3/ul (0.0-0.1); BASOPHILS % 0.7 % (0.0-2.0); EOSINOPHILS # 0.3 10^3/ul (0.0-0.5); EOSINOPHILS % 2.3 % (0.0-7.0); HEMOGLOBIN 10.7 g/dl (14.0-18.0); LYMPHOCYTES # 2.8 10^3/ul (0.8-2.9); LYMPHOCYTES % 20.1 % (15.0-51.0); MEAN CORPUSCULAR HEMOGLOBIN 31.2 pg (29.0-33.0); MEAN CORPUSCULAR HGB CONC 32.4 g/dl (32.0-37.0); MEAN CORPUSCULAR VOLUME 96.2 fl (82.0-101.0); MEAN PLATELET VOLUME 10.2 fl (7.4-10.4); MONOCYTE # 0.8 10^3/ul (0.3-0.9); MONOCYTES % 5.9 % (0.0-11.0); NEUTROPHIL # 9.9 10^3/ul (1.6-7.5); NEUTROPHILS % 70.6 % (39.0-77.0); PLATELET COUNT 319 10^3/UL (140-415); RED BLOOD COUNT 3.43 10^6/ul (4.70-6.10); RED CELL DISTRIBUTION WIDTH 12.9 % (11.5-14.5)
[2017-09-08 06:26] LABS: CALCIUM 9.6 mg/dl (8.4-10.2); CREATININE 4.63 mg/dl (0.61-1.24); MAGNESIUM 1.7 mg/dl (1.7-2.5); PHOSPHORUS 4.8 mg/dl (2.5-4.9); POTASSIUM 4.8 mmol/L (3.5-5.1)
[2017-09-08 06:51] LABS: THYROID STIMULATING HORMONE 0.59 MIU/L (0.465-4.680)
[2017-09-08 07:10] VITALS: BP 129/82; RESP 18
[2017-09-08] MEDS: ACCU-CHEK XX SCH ×3 (07:20→17:16)
[2017-09-08] MEDS: PT'S OWN INSULIN PUMP SC SCH ×4 (07:20→21:00)
[2017-09-08] MEDS ORDERED: SPECIAL NON-STANDARD MEDICATION SC SCH (07:20)
[2017-09-08] MEDS: FERROUS SULFATE (EC) 325 MG TAB PO SCH ×3 (08:27→20:54)
[2017-09-08] MEDS: MULTIVIT/CA CARB/B CMPLX/FA TAB PO SCH (08:28)
[2017-09-08] MEDS: NICOTINE (14 MG/24 HR) PATCH TRANSDERM SCH (09:00)
[2017-09-08] MEDS ORDERED: NON-FORMULARY/PATIENT OWN MED (Lactobacillus Acidophilus (Probiotic) 1 CAP) PO SCH (09:00)
[2017-09-08] MEDS ORDERED: GENTAMICIN IVPB SCH (09:00)
[2017-09-08] MEDS ORDERED: SOD CHLORIDE 0.9% IVPB SCH (09:00)
[2017-09-08] MEDS: HEPARIN 5,000 UNIT/0.5 ML VIAL SC SCH ×2 (09:02→21:12)
[2017-09-08] MEDS: LACTOBACILLUS RHAMNOSUS CAP PO SCH (09:29)
--- NOTE | 2017-09-08 12:21 | PN ---
Date/Time of Note Date/Time of Note DATE: 09/08/17 TIME: 12:13 Assessment/Plan VTE Prophylaxis VTE Prophylaxis Intervention: SCD's Lines/Catheters IV Catheter Type (from Nrs): PERMACATH Urinary Cath still in place: No Assessment/Plan Chief Complaint/Hosp Course S: Per nursing staff, patient did not receive dialysis, even though I spoke with the on-call renal doctor myself yesterday over the phone. No acute events overnight. O: VS (see below) PE: General: lying in bed, NAD Head: Normocephalic, atraumatic. Eyes: Pupils equally reactive, EOM intact ENT: Moist mucous membranes Neck: Supple, no lymphadenopathy Respiratory: Lungs clear bilaterally, no distress Cardiovascular: Tachycardia, no murmurs, rubs, or gallops Abdominal: Soft, non-tender, non-distended, no peritoneal signs back, mild CVA tenderness bilaterally : Deferred MSK: No edema, no unilateral swelling, 5/5 strength Neurologic: Alert and oriented, moving all extremities, normal speech, no focal weakness, no cerebellar signs Skin: No rash Psych: Normal mood A/P: 22 M with DM-1, ESRD on HD, prior UTI's, neurogenic bladder, p/w LBP and signs on UTI. 1. UTI: UA was positive, no fevers, white blood cell count trending down, on antibiotics presently. She has prior history of UTIs in the past -Continue current antibiotics, follow-up CBC results daily, Tylenol as needed , follow-up ID recommendations 2. Type 1 diabetes: Again continue insulin pump, sliding scale insulin, follow- up A1c 3. Neurogenic bladder: See #1. 4. Smoking: Counseled on cessation, continue NicoDerm patch. Problems: Exam/Review of Systems Vital Signs Vitals Vital Signs Date Time Temp Pulse Resp B/P Pulse Ox O2 Delivery O2 Flow Rate FiO2 09/08/17 07:10 99.0 98 18 129/82 99 09/08/17 00:11 21 09/07/17 20:26 Room Air 09/07/17 15:00 2.0 Intake and Output 09/07/17 09/07/17 09/08/17 15:00 23:00 07:00 Intake Total 400 ml 2200 ml Output Total 200 ml 800 ml Balance 200 ml 1400 ml Results Result Diagram: 09/08/17 0422 09/08/17 0422 Results 24 hrs Laboratory Tests Test 09/07/17 12:59 09/07/17 13:00 09/07/17 14:34 09/07/17 15:44 Lactic Acid Level 1.4 1.4 Urine Color PRASAD Urine Clarity TURBID A Urine pH 6.0 Urine Specific [place] 1.022 Urine Ketones TRACE A Urine Nitrite NEGATIVE Urine Bilirubin NEGATIVE Urine Urobilinogen NEGATIVE Urine Leukocyte Esterase 2+ H Urine Microscopic RBC > 182 H Urine Microscopic WBC > 182 H Urine Squamous Epithelial Cells FEW Urine Hemoglobin 2+ H Urine Glucose 2+ H Urine Total Protein 3+ H Bedside Glucose 316 H Prothrombin Time 13.0 Prothrombin Time Ratio 1.0 INR International Normalized Ratio 0.97 Activated Partial Thromboplast Time 21.3 L Free Thyroxine 1.27 Test 09/07/17 18:13 09/07/17 18:36 09/07/17 21:26 09/08/17 04:21 Bedside Glucose 195 312 H Lactic Acid Level 1.0 Triglycerides Level 126 Cholesterol Level 130 LDL Cholesterol, Calculated 63 HDL Cholesterol 42 Cholesterol/HDL Ratio 3.0 Thyroid Stimulating Hormone (TSH) 0.590 Test 09/08/17 04:22 09/08/17 08:23 White Blood Count 14.0 #H Red Blood Count 3.43 #L Hemoglobin 10.7 #L Hematocrit 33.0 L Mean Corpuscular Volume 96.2 Mean Corpuscular Hemoglobin 31.2 Mean Corpuscular Hemoglobin Concent 32.4 Red Cell Distribution Width 12.9 Platelet Count 319 # Mean Platelet Volume 10.2 Neutrophils % 70.6 Lymphocytes % 20.1 Monocytes % 5.9 Eosinophils % 2.3 Basophils % 0.7 Nucleated Red Blood Cells % 0.0 Neutrophils # 9.9 H Lymphocytes # 2.8 Monocytes # 0.8 Eosinophils # 0.3 Basophils # 0.1 Nucleated Red Blood Cells # 0.0 Sodium Level 143 Potassium Level 4.8 Chloride Level 109 Carbon Dioxide Level 18 L Anion Gap 21 #H Blood Urea Nitrogen 53 H Creatinine 4.63 H Glucose Level 152 # Hemoglobin A1c 8.9 H Calcium Level 9.6 Phosphorus Level 4.8 Magnesium Level 1.7 Bedside Glucose 106 Medications Medications Current Medications Ondansetron HCl (Zofran Inj) 4 mg Q6H PRN IV NAUSEA AND/OR VOMITING Last administered on 09/08/17t 11:10; Admin Dose 4 MG; Start 09/07/17 at 15:00 Acetaminophen (Tylenol Tab) 650 mg Q6H PRN PO PAIN LEVEL 1-3 OR FEVER; Start 09/07/17 at 15:00 Acetaminophen/ Hydrocodone Bitart ([place] (5/325)) 1 tab Q6H PRN PO MODERATE PAIN LEVEL 4-6; Start 09/07/17 at 15:00 Morphine Sulfate (morphine) 2 mg Q4H PRN IV SEVERE PAIN LEVEL 7-10 Last administered on 09/08/17 08:59; Admin Dose 2 MG; Start 09/07/17 at 15:00 Docusate Sodium (Colace) 100 mg Q12H PRN PO CONSTIPATION; Start 09/07/17 at 15: 00 Magnesium Hydroxide (Milk Of Mag) 30 ml DAILY PRN PO CONSTIPATION; Start at 15:00 Sodium Biphosphate/ Sodium Phosphate (Fleet Enema) 133 ml DAILY PRN [place] CONSTIPATION; Start 09/07/17 at 15:00 Pantoprazole (Protonix Tab) 40 mg DAILY@06 PO Last administered on 09/08/17 05:04; Admin Dose 40 MG; Start 09/08/17 at 06:00 Heparin Sodium (Porcine) (Heparin (5000 Units/0.5 ml)) 5,000 unit Q12 SC Last administered on 09/08/17 09:02; Admin Dose 5,000 UNIT; Start 09/07/17 at 21:00 Lorazepam (Ativan) 0.5 mg Q6H PRN IV ANXIETY; Start 09/07/17 at 15:00 Hydralazine HCl (Apresoline) 10 mg Q6H PRN IV SBP GREATER THAN 180; Start 09/07 at 15:00 Clonidine (Catapres) 0.1 mg Q6H PRN PO SBP GREATER THAN 160; Start 09/07/17 at 15:00 Nitroglycerin (Nitroglycerin (Sl Tab) 0.4 Mg) 1 tab Q5M PRN SL ANGINA; Start 09/07/17 at 15:00 Ferrous Sulfate (Ferrous Sulfate (Ec)) 325 mg TID PO Last administered on 09/08 08:27; Admin Dose 325 MG; Start 09/07/17 at 21:00 Multivit/Ca Carb/ B Cmplx/FA/Prenat (Harini-Michael) 1 tab DAILY PO Last administered on 09/08/17 08:28; Admin Dose 1 TAB; Start 09/08/17 at 09:00 Sodium Bicarbonate (Sodium Bicarbonate Tab) 650 mg DAILY PO ; Start 09/08/17 at 09:00; Status UNV Gentamicin Sulfate GENTAMICIN PER PHARMACY NOTE XX ; Start 09/07/17 at 15:00 Sodium Chloride (1/2 NS) 1,000 ml @ 75 mls/hr [id number] IV Last administered on 09/08/17 05:06; Admin Dose 75 MLS/HR; Start 09/07/17 at 15:00 Nicotine 1 patch 1 patch DAILY TRANSDERM Last administered on 09/07/17 21:08; Admin Dose 1 PATCH; Start 09/07/17 at 15:00 Ertapenem/Sodium Chloride (Invanz/NS) 100 ml @ 200 mls/hr Q24H IVPB Last administered on 09/07/17 22:17; Admin Dose 200 MLS/HR; Start 09/07/17 at 18:00 Loperamide HCl (Imodium Cap) 2 mg TID PRN PO DIARRHEA; Start 09/07/17 at 17:30 Lactobacillus Acidophilus/ Rhamnosus (Culturelle) 1 cap DAILY PO Last administered on 09/08/17 09:29; Admin Dose 1 CAP; Start 09/08/17 at 09:00 RODRIGUEZ LOREDO Sep 08, 2017 12:21
[2017-09-08] MEDS: CALCIUM POLYCARBOPHIL 625 MG TAB PO SCH (12:40)
[2017-09-08] MEDS ORDERED: METHYLCELLULOSE 500 MG PO SCH (12:40)
--- NOTE | 2017-09-08 13:25 | HP ---
DATE OF ADMISSION: 09/07/2017 CHIEF COMPLAINT: This is a 22-year-old male with chief complaint of chills and vomiting and back pain. HISTORY OF PRESENT ILLNESS: A 22-year-old male with past medical history of type 1 diabetes, using insulin pump at home, end-stage renal disease, on dialysis since January 2017, iron-deficiency anemia, neurogenic bladder, and prior multiple UTIs with drug- resistant organisms. He has been having vomiting symptoms, nonbilious and nonbloody, for the last 1-2 days. Also, generalized back pain and some mild nausea symptoms. Denies any upper or lower GI bleeding. The patient was recently treated at [facility] about a week ago and stayed there for 3 days for DKA. He denies chest pain or shortness of breath. No diarrhea or constipation. When he came to the ER today, his urine was again positive for signs of UTI and his white blood cell count was elevated at 17.9. He had elevated lactic acid, as well as signs of sepsis. PAST MEDICAL HISTORY: Above. ALLERGIES: NO KNOWN DRUG ALLERGIES. MEDICATIONS: Home medications: It looks like gentamicin q.3 hours via catheter, ferrous sulfate 325 mg t.i.d., probiotic 1 capsule daily, Imodium 6 mg in the evening p.r.n., fiber 500 mg at lunch, sodium bicarb tablets 650 mg daily, Harini-Michael 1 tab daily and, again, insulin pump. PAST SURGICAL HISTORY: He had a left hand surgery in the past, left arm fistula placed in the past, left foot infection surgery in the past. SOCIAL HISTORY: Smokes 1-2 cigarettes a day. Denies any IV drug abuse. FAMILY HISTORY: Family history noncontributory. PHYSICAL EXAMINATION: VITAL SIGNS: Today, T-max 98.6, pulse 85-118, respirations are normal. Blood pressure is normal. GENERAL: The patient is lying in bed, answers question appropriately. No acute distress. HEENT: Pupils equal, round, reactive to light. Extraocular muscles intact. NECK: Supple. No thyromegaly. LUNGS: Clear to auscultation bilaterally. CARDIAC: S1, S2 heard. No rubs or gallops. ABDOMEN: Soft, nontender, nondistended. Normal bowel sounds. No rebound or guarding. MUSCULOSKELETAL: No lower extremity edema B/L NEUROLOGIC: No focal deficits. DATA: WBC 17.9, hemoglobin 14, hematocrit 40.5, platelets 408. Sodium 146, potassium 4.8, chloride 104, CO2 16, BUN 48, creatinine 5.19, glucose 255. Lactic acid initially 2.8, repeat is 1.4. Calcium is a little high at 11.2. LFTs are normal. Troponin is negative x1. Chest x-ray shows no evidence of any active cardiopulmonary disease. His UA does show trace ketones, with 2+ leukocyte esterase positive, multiple WBCs. Coags are normal. ASSESSMENT/PLAN: A 22-year-old male coming in with back pain and vomiting symptoms with signs of urinary tract infection. Prior history of neurogenic bladder with multiple urinary tract infections in the past and type 1 diabetes on insulin pump. 1. Back pain and nausea. Again, likely secondary to UTI, showing signs of mild sepsis with elevated lactic acid. We will admit the patient and put him on broad-spectrum antibiotics. I will get ID consult. Based on his prior infections, based on the type of bugs and sensitivities, will initially put him on carbapenem antibiotic and gentamicin. We will talk with ID about adjusting those. Check TSH, A1c, lipid panel. Tylenol p.r.n. pain and fevers. Low-dose IV fluids. 2. End-stage renal disease, on dialysis. His renal doctor is Dr. Wan and so we will consult him. The patient gets dialysis 2 times a week. He is scheduled for dialysis today. 3. Type 1 diabetes. Again, patient has insulin pump. Will put on sliding scale insulin. Check A1c. 4. History of smoking. We will counselling psychologist on cessation and give him low-dose nicotine patch. 5. Iron deficiency anemia. Hemoglobin is presently stable. Continue to monitor for now. 6. Gastrointestinal prophylaxis: PPI. Dictated By: Lucio Ayala MD /delmy/xavi /Document#: [id number] REGINE
[2017-09-08 15:19] VITALS: BP 127/78; RESP 18
[2017-09-08] MEDS: ERTAPENEM SODIUM 0.5 GM in SOD CHLORIDE 0.9% 100 ML IVPB SCH (17:20)
[2017-09-08 19:25] VITALS: BP 122/76; RESP 18
[2017-09-08] MEDS ORDERED: ONDANSETRON 4 MG INJ IV PRN (21:00)
[2017-09-08] MEDS: TRIMETHOBENZAMIDE 100 MG/ML VIAL IM PRN (21:00)
[2017-09-09] VITALS (12 sets, daily range): BP systolic 118–171; BP diastolic 58–96; PULSE 84–87; RESP 16–18
[2017-09-09] MEDS: ONDANSETRON INJ 8 MG in SOD CHLORIDE 0.9% 50 ML IV PRN ×2 (01:12→09:10)
[2017-09-09] MEDS: morphine 2 MG INJ IV PRN ×8 (01:12→20:09)
[2017-09-09] MEDS ORDERED: DEXTROSE 50% 50 ML SYRINGE IV PRN ×2 (03:30)
[2017-09-09] MEDS ORDERED: GLUCOSE GEL 15 GRAM TUBE PO PRN ×2 (03:30)
[2017-09-09] MEDS ORDERED: GLUCOSE GEL 15 GRAM TUBE BUCCAL PRN (03:30)
[2017-09-09] MEDS ORDERED: GLUCAGON 1 MG INJ IM PRN (03:30)
[2017-09-09] MEDS: PANTOPRAZOLE (EC) 40 MG TAB PO SCH (04:54)
[2017-09-09] MEDS: TRIMETHOBENZAMIDE 100 MG/ML VIAL IM PRN (04:54)
[2017-09-09 05:17] LABS: BASOPHIL # 0.1 10^3/ul (0.0-0.1); BASOPHILS % 0.6 % (0.0-2.0); EOSINOPHILS # 0.1 10^3/ul (0.0-0.5); EOSINOPHILS % 1.1 % (0.0-7.0); HEMATOCRIT 32.6 % (42.0-52.0); HEMOGLOBIN 10.8 g/dl (14.0-18.0); LYMPHOCYTES # 1.9 10^3/ul (0.8-2.9); LYMPHOCYTES % 17.5 % (15.0-51.0); MEAN CORPUSCULAR HEMOGLOBIN 31.6 pg (29.0-33.0); MEAN CORPUSCULAR HGB CONC 33.1 g/dl (32.0-37.0); MEAN CORPUSCULAR VOLUME 95.3 fl (82.0-101.0); MEAN PLATELET VOLUME 10.1 fl (7.4-10.4); MONOCYTE # 0.5 10^3/ul (0.3-0.9); MONOCYTES % 4.9 % (0.0-11.0); NEUTROPHILS % 75.7 % (39.0-77.0); PLATELET COUNT 271 10^3/UL (140-415); RED BLOOD COUNT 3.42 10^6/ul (4.70-6.10); RED CELL DISTRIBUTION WIDTH 12.7 % (11.5-14.5); WHITE BLOOD COUNT 10.6 10^3/ul (4.8-10.8)
[2017-09-09 05:35] LABS: CALCIUM 9.3 mg/dl (8.4-10.2); CREATININE 4.66 mg/dl (0.61-1.24); POTASSIUM 4.2 mmol/L (3.5-5.1)
[2017-09-09] MEDS: PT'S OWN INSULIN PUMP SC SCH ×4 (07:20→20:27)
[2017-09-09] MEDS: ACCU-CHEK XX SCH ×3 (07:50→17:56)
[2017-09-09] MEDS: MULTIVIT/CA CARB/B CMPLX/FA TAB PO SCH (08:34)
[2017-09-09] MEDS: HEPARIN 5,000 UNIT/0.5 ML VIAL SC SCH ×2 (08:34→20:19)
[2017-09-09] MEDS: LACTOBACILLUS RHAMNOSUS CAP PO SCH (08:34)
[2017-09-09] MEDS: FERROUS SULFATE (EC) 325 MG TAB PO SCH ×3 (08:34→20:19)
[2017-09-09] MEDS: NICOTINE (14 MG/24 HR) PATCH TRANSDERM SCH (08:35)
[2017-09-09] MEDS ORDERED: DEXTROSE 5% 1,000 ML IV SCH (10:00)
--- NOTE | 2017-09-09 11:12 | CONS ---
Date/Time of Note Date/Time of Note DATE: 09/09/17 TIME: 11:09 Assessment/Plan Assessment/Plan Chief Complaint/Hosp Course - ESRD on Hemodialysis Saturday & - Recent admit to [facility] with UTI & DKA - Neurogenic Bladder - Chronic Hydronephrosis - Multiple admissions due to UTI / Sepsis - Hypertension PLAN: Missed HD last on Saturday Will plan for HD today bedside Broad spectrum Abx Monitor Urine culture results BP control THANK YOU Bri MARTIN Problems: Consultation Date/Type/Reason Admit Date/Time Sep 07, 2017 at 13:03 Date of Consultation: Sep 09, 2017 Type of Consultation: NEPHROLOGY Reason for Consultation - ESRD on Hemodialysis @ [facility] Saturday & Saturday Constitutional: improved, no complaints Gastrointestinal: nausea Past Medical History Medical History: congestive heart failure, coronary artery disease, hypertension, renal disease Past Surgical History Past Surgical Hx: no surgical history, other Family History Significant Family History: no pertinent family hx Social History Alcohol Use: none Smoking Status: Never smoker Drug Use: none Exam/Review of Systems Vital Signs Vitals Vital Signs Date Time Temp Pulse Resp B/P Pulse Ox O2 Delivery O2 Flow Rate FiO2 09/09/17 07:58 98.4 98 18 137/85 99 09/08/17 00:11 21 09/07/17 20:26 Room Air 09/07/17 15:00 2.0 Intake and Output 09/08/17 09/08/17 09/09/17 15:00 23:00 07:00 Intake Total 2100 ml 1004 ml Output Total 900 ml 800 ml Balance 1200 ml 204 ml Exam Constitutional: alert, oriented, well developed Psych: no complaints Head: normocephalic Eyes: nl conjunctiva Respiratory: crackles/rales Cardiovascular: edema, regular rate and rhythm, systolic murmur Gastrointestinal: soft Results Result Diagram: 09/09/17 0427 09/09/17 042 Results 24 hrs Laboratory Tests Test 09/08/17 12:42 09/08/17 13:28 09/08/17 15:27 09/08/17 15:56 Bedside Glucose 69 L 71 53 L 73 Test 09/08/17 17:15 09/08/17 21:05 09/09/17 01:58 09/09/17 04:27 Bedside Glucose 158 113 93 White Blood Count 10.6 # Red Blood Count 3.42 L Hemoglobin 10.8 L Hematocrit 32.6 L Mean Corpuscular Volume 95.3 Mean Corpuscular Hemoglobin 31.6 Mean Corpuscular Hemoglobin Concent 33.1 Red Cell Distribution Width 12.7 Platelet Count 271 Mean Platelet Volume 10.1 Neutrophils % 75.7 Lymphocytes % 17.5 Monocytes % 4.9 Eosinophils % 1.1 Basophils % 0.6 Nucleated Red Blood Cells % 0.0 Neutrophils # 8.0 H Lymphocytes # 1.9 Monocytes # 0.5 Eosinophils # 0.1 Basophils # 0.1 Nucleated Red Blood Cells # 0.0 Sodium Level 145 H Potassium Level 4.2 Chloride Level 112 H Carbon Dioxide Level 19 L Anion Gap 18 H Blood Urea Nitrogen 46 H Creatinine 4.66 H Glucose Level 67 #L Calcium Level 9.3 Test 09/09/17 07:36 09/09/17 07:57 09/09/17 08:32 09/09/17 09:12 Bedside Glucose 52 L 61 L 68 L 140 Medications Medications Current Medications Acetaminophen (Tylenol Tab) 650 mg Q6H PRN PO PAIN LEVEL 1-3 OR FEVER; Start 09/07/17 at 15:00 Acetaminophen/ Hydrocodone Bitart ([place] (5/325)) 1 tab Q6H PRN PO MODERATE PAIN LEVEL 4-6; Start 09/07/17 at 15:00 Docusate Sodium (Colace) 100 mg Q12H PRN PO CONSTIPATION; Start 09/07/17 at 15: 00 Magnesium Hydroxide (Milk Of Mag) 30 ml DAILY PRN PO CONSTIPATION; Start at 15:00 Sodium Biphosphate/ Sodium Phosphate (Fleet Enema) 133 ml DAILY PRN [place] CONSTIPATION; Start 09/07/17 at 15:00 Pantoprazole (Protonix Tab) 40 mg DAILY@06 PO Last administered on 09/09/17 04:54; Admin Dose 40 MG; Start 09/08/17 at 06:00 Heparin Sodium (Porcine) (Heparin (5000 Units/0.5 ml)) 5,000 unit Q12 SC Last administered on 09/09/17 08:34; Admin Dose 5,000 UNIT; Start 09/07/17 at 21:00 Lorazepam (Ativan) 0.5 mg Q6H PRN IV ANXIETY; Start 09/07/17 at 15:00 Hydralazine HCl (Apresoline) 10 mg Q6H PRN IV SBP GREATER THAN 180; Start 09/07 at 15:00 Clonidine (Catapres) 0.1 mg Q6H PRN PO SBP GREATER THAN 160; Start 09/07/17 at 15:00 Nitroglycerin (Nitroglycerin (Sl Tab) 0.4 Mg) 1 tab Q5M PRN SL ANGINA; Start 09/07/17 at 15:00 Ferrous Sulfate (Ferrous Sulfate (Ec)) 325 mg TID PO Last administered on 09/09 08:34; Admin Dose 325 MG; Start 09/07/17 at 21:00 Multivit/Ca Carb/ B Cmplx/FA/Prenat (Harini-Michael) 1 tab DAILY PO Last administered on 09/09/17 08:34; Admin Dose 1 TAB; Start 09/08/17 at 09:00 Sodium Bicarbonate (Sodium Bicarbonate Tab) 650 mg DAILY PO ; Start 09/08/17 at 09:00; Status UNV Gentamicin Sulfate (Gentamicin Iv Per Pharmacy) GENTAMICIN PER PHARMACY NOTE XX ; Start 09/07/17 at 15:00 Nicotine 1 patch 1 patch DAILY TRANSDERM Last administered on 09/07/17 21:08; Admin Dose 1 PATCH; Start 09/07/17 at 15:00 Ertapenem/Sodium Chloride (Invanz/NS) 100 ml @ 200 mls/hr Q24H IVPB Last administered on 09/08/17 17:20; Admin Dose 200 MLS/HR; Start 09/07/17 at 18:00 Loperamide HCl (Imodium Cap) 2 mg TID PRN PO DIARRHEA; Start 09/07/17 at 17:30 Lactobacillus Acidophilus/ Rhamnosus (Culturelle) 1 cap DAILY PO Last administered on 09/09/17 08:34; Admin Dose 1 CAP; Start 09/08/17 at 09:00 Trimethobenzamide HCl 200 mg 200 mg Q6H PRN IM NAUSEA AND/OR VOMITING Last administered on 09/09/17 04:54; Admin Dose 200 MG; Start 09/08/17 at 20:30 Ondansetron HCl/ Sodium Chloride (Zofran Inj/NS) 54 ml @ 216 mls/hr Q6H PRN IV NAUSEA AND/OR VOMITING Last administered on 12/11/17at 09:10; Admin Dose 216 MLS/HR; Start 09/08/17 at 21:00 Miscellaneous Information 1 ea NOTE XX ; Start 09/09/17 at 03:30 Glucose (Glutose) 15 gm Q15M PRN PO DECREASED GLUCOSE; Start 09/09/17 at 03:30 Glucose (Glutose) 22.5 gm Q15M PRN PO DECREASED GLUCOSE; Start 09/09/17 at 03: 30 Dextrose (D50w Syringe) 25 ml Q15M PRN IV DECREASED GLUCOSE; Start 09/09/17 at 03:30 Dextrose (D50w Syringe) 50 ml Q15M PRN IV DECREASED GLUCOSE; Start 09/09/17 at 03:30 Glucagon (Glucagen) 1 mg Q15M PRN IM DECREASED GLUCOSE; Start 09/09/17 at 03: 30 Glucose 15 gm 15 gm Q15M PRN BUCCAL DECREASED GLUCOSE; Start 09/09/17 at 03:30 Dextrose (D5W) 1,000 ml @ 75 mls/hr [id number] IV ; Start 09/09/17 at 10:00 Morphine Sulfate (morphine) 2 mg Q2 PRN IV SEVERE PAIN LEVEL 7-10; Start 09/09 at 11:00 MICHAEL CADET MD Sep 09, 2017 11:12
[2017-09-09] MEDS: NA BICARBONATE 650 MG TAB PO SCH ×2 (11:20→13:10)
[2017-09-09] MEDS: CALCIUM POLYCARBOPHIL 625 MG TAB PO SCH (13:10)
--- NOTE | 2017-09-09 13:56 | PN ---
DATE: 09/09/2017 SUBJECTIVE: Patient is alert, feels better. Looks comfortable, no fevers. LABORATORY DATA: WBC today 10.6, no shift, no bands. INDWELLINGS: Right chest Perm-A-Cath, left upper extremity AV fistula. MICROBIOLOGY: Urine culture growing yeast. Preliminary blood cultures have been negative. ANTIMICROBIALS: The patient is on gentamicin status post Invanz. PHYSICAL EXAMINATION: GENERAL: This is a well-nourished, well-developed young man who is alert, in no distress. HEENT: Head atraumatic, normocephalic. Sclerae anicteric. Buccal mucosa pink. NECK: Supple. CHEST: Rise symmetrical. Breath sounds clear. HEART: S1, S2. ABDOMEN: Soft, bowel tones present. EXTREMITIES: Without cyanosis. ASSESSMENT: 1. Resolving sepsis, present on admission. 2. Recurrent urinary tract infection secondary to neurogenic bladder. 3. End-stage renal disease. 4. Diabetes. PLAN: We are going to add fluconazole to the regimen. Continue gentamicin. Await for final urine cultures. Dictated By: TESS AGUILAR MANAGER ADMINISTRATIVE SERVICES for CARLOS HARRINGTON/ODESSA Conf#: [id number] DID#: [id number]
[2017-09-09] MEDS: FLUCONAZOLE 100 MG TAB PO SCH (13:57)
--- NOTE | 2017-09-09 14:38 | PN ---
Date/Time of Note Date/Time of Note DATE: 09/09/17 TIME: 14:34 Assessment/Plan VTE Prophylaxis VTE Prophylaxis Intervention: SCD's Lines/Catheters IV Catheter Type (from Nrs): Peripheral IV Urinary Cath still in place: No Assessment/Plan Assessment/Plan 22 yo M with pmhx DM1 with resultant ESRD and neurogenic bladder admitted for ? sepsis? from ?UTI? #?UTI: pt c/o abd pain on admission, had told team members this is how his UTIs usually present. urine presently only growing out yeast -dc Invanz. cont gent per ID rec #ESRD: nephrology on consult for HD #DM1: pt on insulin pump, BGs low this AM 2/2 decreased PO. Pt advised to decrease basal pump setting #tobacco abuse: cont NRT discharge pending further urine culture data Subjective 24 Hr Interval Summary Free Text/Dictation felt a little nauseated this AM, hadn't yet gotten HD BGs low this AM Exam/Review of Systems Vital Signs Vitals Vital Signs Date Time Temp Pulse Resp B/P Pulse Ox O2 Delivery O2 Flow Rate FiO2 09/09/17 07:58 98.4 98 18 137/85 99 09/08/17 00:11 21 09/07/17 20:26 Room Air 09/07/17 15:00 2.0 Intake and Output 09/08/17 09/08/17 09/09/17 15:00 23:00 07:00 Intake Total 2100 ml 1004 ml Output Total 900 ml 800 ml Balance 1200 ml 204 ml Exam nad no mrg lungs clear abd soft no rashes Results Result Diagram: 09/09/17 0427 09/09/17 0427 Results 24 hrs Laboratory Tests Test 09/08/17 15:27 09/08/17 15:56 09/08/17 17:15 09/08/17 21:05 Bedside Glucose 53 L 73 158 113 Test 09/09/17 01:58 09/09/17 04:27 09/09/17 07:36 09/09/17 07:57 Bedside Glucose 93 52 L 61 L White Blood Count 10.6 # Red Blood Count 3.42 L Hemoglobin 10.8 L Hematocrit 32.6 L Mean Corpuscular Volume 95.3 Mean Corpuscular Hemoglobin 31.6 Mean Corpuscular Hemoglobin Concent 33.1 Red Cell Distribution Width 12.7 Platelet Count 271 Mean Platelet Volume 10.1 Neutrophils % 75.7 Lymphocytes % 17.5 Monocytes % 4.9 Eosinophils % 1.1 Basophils % 0.6 Nucleated Red Blood Cells % 0.0 Neutrophils # 8.0 H Lymphocytes # 1.9 Monocytes # 0.5 Eosinophils # 0.1 Basophils # 0.1 Nucleated Red Blood Cells # 0.0 Sodium Level 145 H Potassium Level 4.2 Chloride Level 112 H Carbon Dioxide Level 19 L Anion Gap 18 H Blood Urea Nitrogen 46 H Creatinine 4.66 H Glucose Level 67 #L Calcium Level 9.3 Test 09/09/17 08:32 09/09/17 09:12 09/09/17 11:41 Bedside Glucose 68 L 140 286 H Medications Medications Current Medications Acetaminophen (Tylenol Tab) 650 mg Q6H PRN PO PAIN LEVEL 1-3 OR FEVER; Start 09/07/17 at 15:00 Acetaminophen/ Hydrocodone Bitart ([place] (5/325)) 1 tab Q6H PRN PO MODERATE PAIN LEVEL 4-6; Start 09/07/17 at 15:00 Docusate Sodium (Colace) 100 mg Q12H PRN PO CONSTIPATION; Start 09/07/17 at 15: 00 Magnesium Hydroxide (Milk Of Mag) 30 ml DAILY PRN PO CONSTIPATION; Start at 15:00 Sodium Biphosphate/ Sodium Phosphate (Fleet Enema) 133 ml DAILY PRN [place] CONSTIPATION; Start 09/07/17 at 15:00 Pantoprazole (Protonix Tab) 40 mg DAILY@06 PO Last administered on 09/09/17 04:54; Admin Dose 40 MG; Start 09/08/17 at 06:00 Heparin Sodium (Porcine) (Heparin (5000 Units/0.5 ml)) 5,000 unit Q12 SC Last administered on 09/09/17 08:34; Admin Dose 5,000 UNIT; Start 09/07/17 at 21:00 Lorazepam (Ativan) 0.5 mg Q6H PRN IV ANXIETY; Start 09/07/17 at 15:00 Hydralazine HCl (Apresoline) 10 mg Q6H PRN IV SBP GREATER THAN 180; Start 09/07 at 15:00 Clonidine (Catapres) 0.1 mg Q6H PRN PO SBP GREATER THAN 160; Start 09/07/17 at 15:00 Nitroglycerin (Nitroglycerin (Sl Tab) 0.4 Mg) 1 tab Q5M PRN SL ANGINA; Start 09/07/17 at 15:00 Ferrous Sulfate (Ferrous Sulfate (Ec)) 325 mg TID PO Last administered on 09/09 13:09; Admin Dose 325 MG; Start 09/07/17 at 21:00 Multivit/Ca Carb/ B Cmplx/FA/Prenat (Harini-Michael) 1 tab DAILY PO Last administered on 09/09/17 08:34; Admin Dose 1 TAB; Start 09/08/17 at 09:00 Sodium Bicarbonate (Sodium Bicarbonate Tab) 650 mg DAILY PO Last administered on 09/09/17 13:10; Admin Dose 650 MG; Start 09/09/17 at 11:20 Gentamicin Sulfate (Gentamicin Iv Per Pharmacy) GENTAMICIN PER PHARMACY NOTE XX ; Start 09/07/17 at 15:00 Nicotine (Nicoderm 14 Mg/ 24hr) 1 patch DAILY TRANSDERM Last administered on 21:08; Admin Dose 1 PATCH; Start 09/07/17 at 15:00 Loperamide HCl (Imodium Cap) 2 mg TID PRN PO DIARRHEA; Start 09/07/17 at 17:30 Lactobacillus Acidophilus/ Rhamnosus (Culturelle) 1 cap DAILY PO Last administered on 09/09/17 08:34; Admin Dose 1 CAP; Start 09/08/17 at 09:00 Trimethobenzamide HCl 200 mg 200 mg Q6H PRN IM NAUSEA AND/OR VOMITING Last administered on 09/09/17 04:54; Admin Dose 200 MG; Start 09/08/17 at 20:30 Ondansetron HCl/ Sodium Chloride (Zofran Inj/NS) 54 ml @ 216 mls/hr Q6H PRN IV NAUSEA AND/OR VOMITING Last administered on 09/09/17 09:10; Admin Dose 216 MLS/HR; Start 09/08/17 at 21:00 Miscellaneous Information 1 ea NOTE XX ; Start 09/09/17 at 03:30 Glucose (Glutose) 15 gm Q15M PRN PO DECREASED GLUCOSE; Start 09/09/17 at 03:30 Glucose (Glutose) 22.5 gm Q15M PRN PO DECREASED GLUCOSE; Start 09/09/17 at 03: 30 Dextrose (D50w Syringe) 25 ml Q15M PRN IV DECREASED GLUCOSE; Start 09/09/17 at 03:30 Dextrose (D50w Syringe) 50 ml Q15M PRN IV DECREASED GLUCOSE; Start 09/09/17 at 03:30 Glucagon (Glucagen) 1 mg Q15M PRN IM DECREASED GLUCOSE; Start 09/09/17 at 03: 30 Glucose (Glutose) 15 gm Q15M PRN BUCCAL DECREASED GLUCOSE; Start 09/09/17 at 03:30 Morphine Sulfate (morphine) 2 mg Q2 PRN IV SEVERE PAIN LEVEL 7-10 Last administered on 09/09/17 13:54; Admin Dose 2 MG; Start 09/09/17 at 11:00 Fluconazole (Diflucan) 100 mg DAILY PO Last administered on 09/09/17 13:57; Admin Dose 100 MG; Start 09/09/17 at 13:30 JESSICA WITT MD Sep 09, 2017 14:38
[2017-09-09] MEDS ORDERED: INSULIN LISPRO 100 UNIT/ML VIAL SC ONE (20:00)
[2017-09-10 02:00] VITALS: BP 135/90; RESP 18
[2017-09-10] MEDS ORDERED: ONDANSETRON 4 MG INJ ONE (02:05)
[2017-09-10] MEDS: morphine 2 MG INJ IV PRN ×4 (02:10→09:49)
[2017-09-10] MEDS: ONDANSETRON INJ 8 MG in SOD CHLORIDE 0.9% 50 ML IV PRN (03:11)
[2017-09-10 04:57] LABS: HAAIG REFLEX REFLEX FILED
[2017-09-10] MEDS: PANTOPRAZOLE (EC) 40 MG TAB PO SCH (05:01)
[2017-09-10 05:05] LABS: BASOPHIL # 0.1 10^3/ul (0.0-0.1); EOSINOPHILS # 0.2 10^3/ul (0.0-0.5); EOSINOPHILS % 2.4 % (0.0-7.0); HEMATOCRIT 31.2 % (42.0-52.0); HEMOGLOBIN 10.4 g/dl (14.0-18.0); LYMPHOCYTES # 1.8 10^3/ul (0.8-2.9); MEAN CORPUSCULAR HEMOGLOBIN 31.8 pg (29.0-33.0); MEAN CORPUSCULAR HGB CONC 33.3 g/dl (32.0-37.0); MEAN CORPUSCULAR VOLUME 95.4 fl (82.0-101.0); MEAN PLATELET VOLUME 10.6 fl (7.4-10.4); MONOCYTE # 0.5 10^3/ul (0.3-0.9); MONOCYTES % 6.9 % (0.0-11.0); NEUTROPHIL # 4.5 10^3/ul (1.6-7.5); NEUTROPHILS % 64.4 % (39.0-77.0); PLATELET COUNT 261 10^3/UL (140-415); RED BLOOD COUNT 3.27 10^6/ul (4.70-6.10); RED CELL DISTRIBUTION WIDTH 12.9 % (11.5-14.5)
[2017-09-10 05:30] LABS: CREATININE 3.78 mg/dl (0.61-1.24); POTASSIUM 4.6 mmol/L (3.5-5.1)
[2017-09-10 07:08] LABS: HEPATITIS B CORE ANTIBODY NEGATIVE (NEGATIVE)
[2017-09-10 08:06] VITALS: BP 130/84; RESP 18
[2017-09-10] MEDS: NA BICARBONATE 650 MG TAB PO SCH (08:33)
[2017-09-10] MEDS: NICOTINE (14 MG/24 HR) PATCH TRANSDERM SCH (08:33)
[2017-09-10] MEDS: FLUCONAZOLE 100 MG TAB PO SCH (08:34)
[2017-09-10] MEDS: FERROUS SULFATE (EC) 325 MG TAB PO SCH ×3 (08:34→20:18)
[2017-09-10] MEDS: MULTIVIT/CA CARB/B CMPLX/FA TAB PO SCH (08:34)
[2017-09-10] MEDS: LACTOBACILLUS RHAMNOSUS CAP PO SCH (08:34)
[2017-09-10] MEDS: PT'S OWN INSULIN PUMP SC SCH ×4 (08:39→21:35)
[2017-09-10] MEDS: ACCU-CHEK XX SCH ×3 (08:39→17:57)
[2017-09-10] MEDS: HEPARIN 5,000 UNIT/0.5 ML VIAL SC SCH ×2 (08:43→20:42)
[2017-09-10] MEDS ORDERED: CAPSAICIN 0.025% 60 GM CR TOP PRN (12:00)
[2017-09-10] MEDS: CALCIUM POLYCARBOPHIL 625 MG TAB PO SCH (12:15)
[2017-09-10] MEDS: LIDOCAINE 5% PATCH TD SCH (12:16)
[2017-09-10] MEDS: traMADol 50 MG TAB PO PRN (12:18)
--- NOTE | 2017-09-10 12:25 | PN ---
Date/Time of Note Date/Time of Note DATE: 09/10/17 TIME: 12:21 Assessment/Plan VTE Prophylaxis VTE Prophylaxis Intervention: SCD's Lines/Catheters IV Catheter Type (from Nrsg): PERMACATH Urinary Cath still in place: No Assessment/Plan Assessment/Plan 22 yo M with pmhx DM1 with resultant ESRD and neurogenic bladder admitted for ? sepsis? from ?UTI? #?UTI: pt c/o abd pain on admission, had told team members this is how his UTIs usually present. urine presently only growing out yeast. very low CFU count -abx as per ID. Pt remains on gent #ESRD: nephrology on consult for HD #DM1: pt on insulin pump, appreciate DM educator assistance #tobacco abuse: cont NRT #chronic LBP: PT eval, plain films topical pain meds, trial of ultram, stop IV meds discharge pending further urine culture data and PT eval Subjective 24 Hr Interval Summary Free Text/Dictation reports he's been taking the morphine for 6 mos of chronic bl LBP. no tingling, no fevers, no weight changes, no weakness Exam/Review of Systems Vital Signs Vitals Vital Signs Date Time Temp Pulse Resp B/P Pulse Ox O2 Delivery O2 Flow Rate FiO2 09/10/17 08:06 98.0 89 18 130/84 100 09/08/17 00:11 21 09/07/17 20:26 Room Air 09/07/17 15:00 2.0 Intake and Output 09/09/17 09/09/17 09/10/17 14:59 22:59 06:59 Intake Total 284 ml 1570 ml 354 ml Output Total 2300 ml Balance 284 ml -730 ml 354 ml Exam nad no mrg lungs clear abd soft LEs with 5/5 strength in hips, knees, feet, ankles. sensorium grossly intact. no tenderness along spinous processes urine culture with <10k CFU maricruz Results Result Diagram: 09/10/17 0417 09/10/17 0417 Results 24 hrs Laboratory Tests Test 09/09/17 17:54 09/09/17 20:14 09/10/17 04:17 09/10/17 06:40 Bedside Glucose 155 200 288 H White Blood Count 7.0 # Red Blood Count 3.27 L Hemoglobin 10.4 L Hematocrit 31.2 L Mean Corpuscular Volume 95.4 Mean Corpuscular Hemoglobin 31.8 Mean Corpuscular Hemoglobin Concent 33.3 Red Cell Distribution Width 12.9 Platelet Count 261 Mean Platelet Volume 10.6 H Neutrophils % 64.4 Lymphocytes % 25.0 Monocytes % 6.9 Eosinophils % 2.4 Basophils % 1.0 Nucleated Red Blood Cells % 0.0 Neutrophils # 4.5 Lymphocytes # 1.8 Monocytes # 0.5 Eosinophils # 0.2 Basophils # 0.1 Nucleated Red Blood Cells # 0.0 Sodium Level 141 Potassium Level 4.6 Chloride Level 107 Carbon Dioxide Level 23 Anion Gap 16 Blood Urea Nitrogen 26 #H Creatinine 3.78 H Glucose Level 366 #H Calcium Level 9.0 Hepatitis B Surface Antigen NEGATIVE Hepatitis B Core Total Antibody NEGATIVE Hepatitis C Antibody NEGATIVE Test 09/10/17 08:38 Bedside Glucose 171 Medications Medications Current Medications Acetaminophen (Tylenol Tab) 650 mg Q6H PRN PO PAIN LEVEL 1-3 OR FEVER; Start 09/07/17 at 15:00 Acetaminophen/ Hydrocodone Bitart ([place] (5/325)) 1 tab Q6H PRN PO MODERATE PAIN LEVEL 4-6; Start 09/07/17 at 15:00 Docusate Sodium (Colace) 100 mg Q12H PRN PO CONSTIPATION; Start 09/07/17 at 15: 00 Magnesium Hydroxide (Milk Of Mag) 30 ml DAILY PRN PO CONSTIPATION; Start at 15:00 Sodium Biphosphate/ Sodium Phosphate (Fleet Enema) 133 ml DAILY PRN [place] CONSTIPATION; Start 09/07/17 at 15:00 Pantoprazole (Protonix Tab) 40 mg DAILY@06 PO Last administered on 09/10/17 05:01; Admin Dose 40 MG; Start 09/08/17 at 06:00 Heparin Sodium (Porcine) (Heparin (5000 Units/0.5 ml)) 5,000 unit Q12 SC Last administered on 09/10/17 08:43; Admin Dose 5,000 UNIT; Start 09/07/17 at 21:00 Lorazepam (Ativan) 0.5 mg Q6H PRN IV ANXIETY; Start 09/07/17 at 15:00 Hydralazine HCl (Apresoline) 10 mg Q6H PRN IV SBP GREATER THAN 180; Start 09/07 at 15:00 Clonidine (Catapres) 0.1 mg Q6H PRN PO SBP GREATER THAN 160; Start 09/07/17 at 15:00 Nitroglycerin (Nitroglycerin (Sl Tab) 0.4 Mg) 1 tab Q5M PRN SL ANGINA; Start 09/07/17 at 15:00 Ferrous Sulfate (Ferrous Sulfate (Ec)) 325 mg TID PO Last administered on 09/10 12:15; Admin Dose 325 MG; Start 09/07/17 at 21:00 Multivit/Ca Carb/ B Cmplx/FA/Prenat (Harini-Michael) 1 tab DAILY PO Last administered on 09/10/17 08:34; Admin Dose 1 TAB; Start 09/08/17 at 09:00 Sodium Bicarbonate (Sodium Bicarbonate Tab) 650 mg DAILY PO Last administered on 09/10/17 08:33; Admin Dose 650 MG; Start 09/09/17 at 11:20 Gentamicin Sulfate (Gentamicin Iv Per Pharmacy) GENTAMICIN PER PHARMACY NOTE XX ; Start 09/07/17 at 15:00 Nicotine (Nicoderm 14 Mg/ 24hr) 1 patch DAILY TRANSDERM Last administered on 21:08; Admin Dose 1 PATCH; Start 09/07/17 at 15:00 Loperamide HCl (Imodium Cap) 2 mg TID PRN PO DIARRHEA; Start 09/07/17 at 17:30 Lactobacillus Acidophilus/ Rhamnosus (Culturelle) 1 cap DAILY PO Last administered on 09/10/17 08:34; Admin Dose 1 CAP; Start 09/08/17 at 09:00 Trimethobenzamide HCl 200 mg 200 mg Q6H PRN IM NAUSEA AND/OR VOMITING Last administered on 09/09/17 04:54; Admin Dose 200 MG; Start 09/08/17 at 20:30 Ondansetron HCl/ Sodium Chloride (Zofran Inj/NS) 54 ml @ 216 mls/hr Q6H PRN IV NAUSEA AND/OR VOMITING Last administered on 09/10/17 03:11; Admin Dose 216 MLS/HR; Start 09/08/17 at 21:00 Miscellaneous Information 1 ea NOTE XX ; Start 09/09/17 at 03:30 Glucose (Glutose) 15 gm Q15M PRN PO DECREASED GLUCOSE; Start 09/09/17 at 03:30 Glucose (Glutose) 22.5 gm Q15M PRN PO DECREASED GLUCOSE; Start 09/09/17 at 03: 30 Dextrose (D50w Syringe) 25 ml Q15M PRN IV DECREASED GLUCOSE; Start 09/09/17 at 03:30 Dextrose (D50w Syringe) 50 ml Q15M PRN IV DECREASED GLUCOSE; Start 09/09/17 at 03:30 Glucagon (Glucagen) 1 mg Q15M PRN IM DECREASED GLUCOSE; Start 09/09/17 at 03: 30 Glucose (Glutose) 15 gm Q15M PRN BUCCAL DECREASED GLUCOSE; Start 09/09/17 at 03:30 Fluconazole (Diflucan) 100 mg DAILY PO Last administered on 09/10/17 08:34; Admin Dose 100 MG; Start 09/09/17 at 13:30 Lidocaine (Lidoderm) 1 patch DAILY TD Last administered on 09/10/17 12:16; Admin Dose 1 PATCH; Start 09/10/17 at 12:00 Capsaicin (Theragen) 1 applic QID PRN TOP pain; Start 09/10/17 at 12:00 Tramadol HCl (Ultram) 50 mg Q6H PRN PO pain Last administered on 09/10/17 12: 18; Admin Dose 50 MG; Start 09/10/17 at 11:00 JESSICA WITT MD Sep 10, 2017 12:25
[2017-09-10] MEDS ORDERED: morphine 2 MG INJ IV PRN (13:00)
--- NOTE | 2017-09-10 14:31 | CONS ---
Date/Time of Note Date/Time of Note DATE: 09/10/17 TIME: 14:30 Assessment/Plan Assessment/Plan Chief Complaint/Hosp Course SUBJECTIVE: Patient is alert, feels good. Looks comfortable, no fevers. INDWELLINGS: Right chest Perm-A-Cath, left upper extremity AV fistula. MICROBIOLOGY: Urine culture growing yeast, not [place] albicans. ANTIMICROBIALS: The patient is on gentamicin and Vfend. PHYSICAL EXAMINATION: GENERAL: This is a well-nourished, well-developed young man who is alert, in no distress. HEENT: Head atraumatic, normocephalic. Sclerae anicteric. Buccal mucosa pink. NECK: Supple. CHEST: Rise symmetrical. Breath sounds clear. HEART: S1, S2. ABDOMEN: Soft, bowel tones present. EXTREMITIES: Without cyanosis. ASSESSMENT: 1. Resolving sepsis, present on admission. 2. Recurrent urinary tract infection secondary to neurogenic bladder. 3. End-stage renal disease. 4. Diabetes. PLAN: Remains stable. Continue present care, antibiotics Problems: Consultation Date/Type/Reason Admit Date/Time Sep 07, 2017 at 13:03 Initial Consult Date 09/09/17 Type of Consultation: ID Exam/Review of Systems Vital Signs Vitals Vital Signs Date Time Temp Pulse Resp B/P Pulse Ox O2 Delivery O2 Flow Rate FiO2 09/10/17 08:06 98.0 89 18 130/84 100 09/08/17 00:11 21 09/07/17 20:26 Room Air 09/07/17 15:00 2.0 Intake and Output 09/09/17 09/09/17 09/10/17 15:00 23:00 07:00 Intake Total 284 ml 1570 ml 354 ml Output Total 2300 ml Balance 284 ml -730 ml 354 ml Results Result Diagram: 09/10/17 0417 09/10/17 0417 Results 24 hrs Laboratory Tests Test 09/09/17 17:54 09/09/17 20:14 09/10/17 04:17 09/10/17 06:40 Bedside Glucose 155 200 288 H White Blood Count 7.0 # Red Blood Count 3.27 L Hemoglobin 10.4 L Hematocrit 31.2 L Mean Corpuscular Volume 95.4 Mean Corpuscular Hemoglobin 31.8 Mean Corpuscular Hemoglobin Concent 33.3 Red Cell Distribution Width 12.9 Platelet Count 261 Mean Platelet Volume 10.6 H Neutrophils % 64.4 Lymphocytes % 25.0 Monocytes % 6.9 Eosinophils % 2.4 Basophils % 1.0 Nucleated Red Blood Cells % 0.0 Neutrophils # 4.5 Lymphocytes # 1.8 Monocytes # 0.5 Eosinophils # 0.2 Basophils # 0.1 Nucleated Red Blood Cells # 0.0 Sodium Level 141 Potassium Level 4.6 Chloride Level 107 Carbon Dioxide Level 23 Anion Gap 16 Blood Urea Nitrogen 26 #H Creatinine 3.78 H Glucose Level 366 #H Calcium Level 9.0 Hepatitis B Surface Antigen NEGATIVE Hepatitis B Core Total Antibody NEGATIVE Hepatitis C Antibody NEGATIVE Test 09/10/17 08:38 09/10/17 13:02 Bedside Glucose 171 234 H Medications Medications Current Medications Acetaminophen (Tylenol Tab) 650 mg Q6H PRN PO PAIN LEVEL 1-3 OR FEVER; Start 09/07/17 at 15:00 Acetaminophen/ Hydrocodone Bitart ([place] (5/325)) 1 tab Q6H PRN PO MODERATE PAIN LEVEL 4-6; Start 09/07/17 at 15:00 Docusate Sodium (Colace) 100 mg Q12H PRN PO CONSTIPATION; Start 09/07/17 at 15: 00 Magnesium Hydroxide (Milk Of Mag) 30 ml DAILY PRN PO CONSTIPATION; Start at 15:00 Sodium Biphosphate/ Sodium Phosphate (Fleet Enema) 133 ml DAILY PRN [place] CONSTIPATION; Start 09/07/17 at 15:00 Pantoprazole (Protonix Tab) 40 mg DAILY@06 PO Last administered on 09/10/17 05:01; Admin Dose 40 MG; Start 09/08/17 at 06:00 Heparin Sodium (Porcine) (Heparin (5000 Units/0.5 ml)) 5,000 unit Q12 SC Last administered on 09/10/17 08:43; Admin Dose 5,000 UNIT; Start 09/07/17 at 21:00 Lorazepam (Ativan) 0.5 mg Q6H PRN IV ANXIETY; Start 09/07/17 at 15:00 Hydralazine HCl (Apresoline) 10 mg Q6H PRN IV SBP GREATER THAN 180; Start 09/07 at 15:00 Clonidine (Catapres) 0.1 mg Q6H PRN PO SBP GREATER THAN 160; Start 09/07/17 at 15:00 Nitroglycerin (Nitroglycerin (Sl Tab) 0.4 Mg) 1 tab Q5M PRN SL ANGINA; Start 09/07/17 at 15:00 Ferrous Sulfate (Ferrous Sulfate (Ec)) 325 mg TID PO Last administered on 09/10 12:15; Admin Dose 325 MG; Start 09/07/17 at 21:00 Multivit/Ca Carb/ B Cmplx/FA/Prenat (Harini-Michael) 1 tab DAILY PO Last administered on 09/10/17 08:34; Admin Dose 1 TAB; Start 09/08/17 at 09:00 Sodium Bicarbonate (Sodium Bicarbonate Tab) 650 mg DAILY PO Last administered on 09/10/17 08:33; Admin Dose 650 MG; Start 09/09/17 at 11:20 Gentamicin Sulfate (Gentamicin Iv Per Pharmacy) GENTAMICIN PER PHARMACY NOTE XX ; Start 09/07/17 at 15:00 Nicotine (Nicoderm 14 Mg/ 24hr) 1 patch DAILY TRANSDERM Last administered on 21:08; Admin Dose 1 PATCH; Start 09/07/17 at 15:00 Loperamide HCl (Imodium Cap) 2 mg TID PRN PO DIARRHEA; Start 09/07/17 at 17:30 Lactobacillus Acidophilus/ Rhamnosus (Culturelle) 1 cap DAILY PO Last administered on 09/10/17 08:34; Admin Dose 1 CAP; Start 09/08/17 at 09:00 Trimethobenzamide HCl 200 mg 200 mg Q6H PRN IM NAUSEA AND/OR VOMITING Last administered on 09/09/17 04:54; Admin Dose 200 MG; Start 09/08/17 at 20:30 Ondansetron HCl/ Sodium Chloride (Zofran Inj/NS) 54 ml @ 216 mls/hr Q6H PRN IV NAUSEA AND/OR VOMITING Last administered on 09/10/17 03:11; Admin Dose 216 MLS/HR; Start 09/08/17 at 21:00 Miscellaneous Information 1 ea NOTE XX ; Start 09/09/17 at 03:30 Glucose (Glutose) 15 gm Q15M PRN PO DECREASED GLUCOSE; Start 09/09/17 at 03:30 Glucose (Glutose) 22.5 gm Q15M PRN PO DECREASED GLUCOSE; Start 09/09/17 at 03: 30 Dextrose (D50w Syringe) 25 ml Q15M PRN IV DECREASED GLUCOSE; Start 09/09/17 at 03:30 Dextrose (D50w Syringe) 50 ml Q15M PRN IV DECREASED GLUCOSE; Start 09/09/17 at 03:30 Glucagon (Glucagen) 1 mg Q15M PRN IM DECREASED GLUCOSE; Start 09/09/17 at 03: 30 Glucose (Glutose) 15 gm Q15M PRN BUCCAL DECREASED GLUCOSE; Start 09/09/17 at 03:30 Lidocaine (Lidoderm) 1 patch DAILY TD Last administered on 09/10/17 12:16; Admin Dose 1 PATCH; Start 09/10/17 at 12:00 Capsaicin (Theragen) 1 applic QID PRN TOP pain Last administered on 09/10/17 14:19; Admin Dose 1 APPLIC; Start 09/10/17 at 12:00 Tramadol HCl (Ultram) 50 mg Q6H PRN PO pain Last administered on 09/10/17 12: 18; Admin Dose 50 MG; Start 09/10/17 at 11:00 Voriconazole (Vfend) 200 mg BID PO ; Start 09/10/17 at 21:00; Stop 09/17/17 at 20:59 TESS AGUILAR NP Sep 10, 2017 14:31
--- NOTE | 2017-09-10 15:01 | RADRPT ---
PROCEDURE: XR Lumbar Spine. CLINICAL INDICATION: Chronic back pain. TECHNIQUE: AP, lateral, oblique, and cone-down lateral view of the lumbar spine were obtained. COMPARISON: No prior studies are available for comparison. FINDINGS: Vertebral bodies are normal in height, density, and alignment. Mild levoscoliosis with apex at L3-L4 . Rudimentary ribs at T12. Grade 1 anterolisthesis of L5 on S1 of 5 mm. Bilateral pars defects compatible with spondylolysis. The disc spaces are normal in appearance. The posterior elements are unremarkable 5 [id number] vertebrae. The soft tissues appear normal. IMPRESSION: 1. Grade 1 anterolisthesis of L5-S1 of 5 mm with bilateral L5 spondylolysis. 2. Mild levoscoliosis of the lumbar spine. 3. The remaining levels are unremarkable. RPTAT:AAJJ Physician Meena Date Time Electronically viewed and signed by Physician Meena on 09/10/2017 15:01 IRENE/
[2017-09-10 16:03] VITALS: BP 132/80; RESP 18
[2017-09-10] MEDS ORDERED: CYCLOBENZAPRINE 10 MG TAB PO ONE (18:00)
[2017-09-10 19:00] VITALS: BP 111/69; RESP 18
[2017-09-10] MEDS: VORICONAZOLE 200 MG TAB PO SCH (20:18)
[2017-09-11 02:05] VITALS: BP 128/79; RESP 18
[2017-09-11 05:51] LABS: BASOPHIL # 0.1 10^3/ul (0.0-0.1); BASOPHILS % 1.1 % (0.0-2.0); EOSINOPHILS # 0.3 10^3/ul (0.0-0.5); EOSINOPHILS % 4.2 % (0.0-7.0); HEMATOCRIT 31.9 % (42.0-52.0); HEMOGLOBIN 10.9 g/dl (14.0-18.0); LYMPHOCYTES # 2.7 10^3/ul (0.8-2.9); LYMPHOCYTES % 37.7 % (15.0-51.0); MEAN CORPUSCULAR HEMOGLOBIN 31.9 pg (29.0-33.0); MEAN CORPUSCULAR HGB CONC 34.2 g/dl (32.0-37.0); MEAN CORPUSCULAR VOLUME 93.3 fl (82.0-101.0); MEAN PLATELET VOLUME 10.2 fl (7.4-10.4); MONOCYTE # 0.4 10^3/ul (0.3-0.9); MONOCYTES % 5.5 % (0.0-11.0); NEUTROPHIL # 3.7 10^3/ul (1.6-7.5); NEUTROPHILS % 51.2 % (39.0-77.0); PLATELET COUNT 268 10^3/UL (140-415); RED BLOOD COUNT 3.42 10^6/ul (4.70-6.10); RED CELL DISTRIBUTION WIDTH 12.7 % (11.5-14.5); WHITE BLOOD COUNT 7.2 10^3/ul (4.8-10.8)
[2017-09-11] MEDS: PANTOPRAZOLE (EC) 40 MG TAB PO SCH (05:56)
[2017-09-11] MEDS: traMADol 50 MG TAB PO PRN (05:56)
[2017-09-11 06:26] LABS: CALCIUM 9.3 mg/dl (8.4-10.2); CREATININE 4.42 mg/dl (0.61-1.24); POTASSIUM 4.1 mmol/L (3.5-5.1)
[2017-09-11] MEDS: ACCU-CHEK XX SCH ×2 (07:20→12:25)
[2017-09-11 07:43] VITALS: BP 136/93; RESP 18
[2017-09-11] MEDS: LACTOBACILLUS RHAMNOSUS CAP PO SCH (08:53)
[2017-09-11] MEDS: LIDOCAINE 5% PATCH TD SCH (08:53)
[2017-09-11] MEDS: MULTIVIT/CA CARB/B CMPLX/FA TAB PO SCH (08:54)
[2017-09-11] MEDS: FERROUS SULFATE (EC) 325 MG TAB PO SCH ×2 (08:54→12:08)
[2017-09-11] MEDS: VORICONAZOLE 200 MG TAB PO SCH (08:54)
[2017-09-11] MEDS: NA BICARBONATE 650 MG TAB PO SCH (08:54)
[2017-09-11] MEDS: NICOTINE (14 MG/24 HR) PATCH TRANSDERM SCH (08:55)
[2017-09-11] MEDS: PT'S OWN INSULIN PUMP SC SCH ×2 (09:10→12:25)
[2017-09-11] MEDS: HEPARIN 5,000 UNIT/0.5 ML VIAL SC SCH (09:14)
[2017-09-11] MEDS: CALCIUM POLYCARBOPHIL 625 MG TAB PO SCH (12:08)
[2017-09-11 13:57] VITALS: BP 120/72; RESP 18
[2017-09-11] MEDS ORDERED: LIDO700A45 TD (14:27)
[2017-09-11] MEDS ORDERED: VORI200T12 PO (14:27)
--- NOTE | 2017-09-11 14:30 | PDOCDIS ---
Discharge Instructions CONDITION Patient Condition: Stable FOLLOW UP/APPOINTMENTS Follow-up Plan Please mention your chronic back pain to your regular doctor. I have written you a prescription for some pain patches which should help without making you too sleepy Follow up with your gravity prospecting supervisor this week to talk more about your insulin pump. Please bring your glucose log to that appointment. If you have any questions/issues with the pump, please call [facility] directly at JESSICA WITT MD Sep 11, 2017 14:30
--- NOTE | 2017-09-11 14:33 | DS ---
Date/Time of Note Date/Time of Note DATE: 09/11/17 TIME: 14:31 Discharge Summary Admission/Discharge Info Admit Date/Time Sep 10, 2017 at 23:06 Discharge Date/Time Discharge Diagnosis Sepsis, presumed from cystitis in setting of neurogenic bladder. lumbar anterolisthesis and spondylolysis. chronic low back pain. DM1 (POA) ESRD (POA) Patient Condition: Stable Consults ID, nephrology Procedures MICRO 12.9: blood cultures 2/2 ng urine: <10K CFU maricruz not albicans 12.10: MRSA swab neg LSpine XR 12.12 IMPRESSION: 1. Grade 1 anterolisthesis of L5-S1 of 5 mm with bilateral L5 spondylolysis. 2. Mild levoscoliosis of the lumbar spine. 3. The remaining levels are unremarkable. Hx of Present Illness A 22-year-old male with past medical history of type 1 diabetes, using insulin pump at home, end-stage renal disease, on dialysis since January 2017, iron-deficiency anemia, neurogenic bladder, and prior multiple UTIs with drug- resistant organisms. He has been having vomiting symptoms, nonbilious and nonbloody, for the last 1-2 days. Also, generalized back pain and some mild nausea symptoms. Denies any upper or lower GI bleeding. The patient was recently treated at [facility] about a week ago and stayed there for 3 days for DKA. He denies chest pain or shortness of breath. No diarrhea or constipation. When he came to the ER today, his urine was again positive for signs of UTI and his white blood cell count was elevated at 17.9. He had elevated lactic acid, as well as signs of sepsis. Hospital Course 22 yo M with pmhx DM1 with resultant ESRD and neurogenic bladder admitted for sepsis from possible UTI. Urine culture returned with just very low CFU maricruz. ID advising 7 days of voriconazole. Pt c/o chronic LBP. Pain controlled with topical lidocaine. Imaging with spondylosis/spondylolethesis. Pt seen by PT, advised to follow up in outpatient setting. Pt with occ hypoglycemia during his stay. Pt seen by DM educator twice and received extensive teaching regarding his DM pump. Given no bacteria in urine, ID did not advise continuing gentamicin after discharge Follow ups Pt to discuss pump settings with his parts salesperson Pt to discuss spondylosis/spondylolethesis with his PCP new meds lidocaine patches, several more days of voriconazole all of the above discussed at length with patient prior to discharge copy of dc summary provided to patient and faxed to PCP Home Meds Reported Medications Gentamicin Sulfate* (Gentamicin Sulfate* Inj) 10 Mg/Ml Soln, 1 DOSE CATHETER Q3H , VIAL GENTAMYCIN FLUSH VIA CATHER (BLADDER) RINSE AND FLUSH AREA EVERY 3 HOURS AROUND THE CLOCKPER PT 09/07/17 Lactobacillus Acidophilus (Probiotic) 1 Each Capsule, 1 CAP PO DAILY, CAP 09/07/17 Methylcellulose (FIBER) 500 Mg Tablet, 500 MG PO PC LUNCH, TAB 09/07/17 Multivit/Ca Carb/B Cmplx/Fa* (Harini-Michael*) 1 Tab Tab, 1 TAB PO DAILY, TAB 09/07/17 Sodium Bicarbonate* (Sodium Bicarbonate*) 650 Mg Tablet, 650 MG PO DAILY, TAB 02/22/17 Loperamide Hcl* (Imodium*) 2 Mg Capsule, 6 MG PO PC DINNER Y for DIARRHEA, CAP MAX 16 mg/day 12/12/16 Ferrous Sulfate* (Ferrous Sulfate*) 325 Mg Tabec, 325 MG PO TID, TAB 06/10/16 Insulin* PUMP (Insulin* PUMP) 1 Each Pump.resvr, 1 EACH MC . DIRECTED, EA 05/18/15 Discontinued Reported Medications Sulfamethoxazole/Trimethoprim* (Bactrim Ds* Tablet) 1 Each Tablet, 1 TAB PO BID , TAB 05/31/17 Ondansetron Hcl* (Zofran*) 8 Mg Tab, 8 MG PO Q8, TAB 05/31/17 [Renavite] No Conflict Check 02/21/17 Follow-up Plan Please mention your chronic back pain to your regular doctor. I have written you a prescription for some pain patches which should help without making you too sleepy Follow up with your parts salesperson this week to talk more about your insulin pump. Please bring your glucose log to that appointment. If you have any questions/issues with the pump, please call [facility] directly at Primary Care Provider eVronika Sullivan MD Time spent on discharge: > 30 minutes Pending Labs Laboratory Tests Test 09/10/17 17:53 09/10/17 20:23 09/11/17 05:14 09/11/17 05:57 Bedside Glucose 151mg/dL (70-220) 214mg/dL (70-220) 93mg/dL (70-220) White Blood Count 7.210^3/ul (4.8-10.8) Red Blood Count 3.4210^6/ul (4.70-6.10) Hemoglobin 10.9g/dl (14.0-18.0) Hematocrit 31.9% (42.0-52.0) Mean Corpuscular Volume 93.3fl (82.0-101.0) Mean Corpuscular Hemoglobin 31.9pg (29.0-33.0) Mean Corpuscular Hemoglobin Concent 34.2g/dl (32.0-37.0) Red Cell Distribution Width 12.7% (11.5-14.5) Platelet Count 08494^3/UL (140-415) Mean Platelet Volume 10.2fl (7.4-10.4) Neutrophils % 51.2% (39.0-77.0) Lymphocytes % 37.7% (15.0-51.0) Monocytes % 5.5% (0.0-11.0) Eosinophils % 4.2% (0.0-7.0) Basophils % 1.1% (0.0-2.0) Nucleated Red Blood Cells % 0.0/100WBC (0.0-0.0) Neutrophils # 3.710^3/ul (1.6-7.5) Lymphocytes # 2.710^3/ul (0.8-2.9) Monocytes # 0.410^3/ul (0.3-0.9) Eosinophils # 0.310^3/ul (0.0-0.5) Basophils # 0.110^3/ul (0.0-0.1) Nucleated Red Blood Cells # 0.010^3/ul (0.0-0.0) Sodium Level 144mmol/L (135-144) Potassium Level 4.1mmol/L (3.5-5.1) Chloride Level 108mmol/L (97-110) Carbon Dioxide Level 21mmol/L (21-31) Anion Gap 19 (8-16) Blood Urea Nitrogen 36mg/dl (7-20) Creatinine 4.42mg/dl (0.61-1.24) Glucose Level 112mg/dl (70-220) Calcium Level 9.3mg/dl (8.4-10.2) Test 09/11/17 09:06 09/11/17 09:26 09/11/17 09:42 09/11/17 12:24 Bedside Glucose 58mg/dL (70-220) 66mg/dL (70-220) 99mg/dL (70-220) 144mg/dL (70-220) JESSICA WITT MD Sep 11, 2017 14:33
--- NOTE | 2017-09-11 18:57 | CONS ---
Date/Time of Note Date/Time of Note DATE: 09/11/17 TIME: 18:57 Assessment/Plan Assessment/Plan Chief Complaint/Hosp Course SUBJECTIVE: Patient is alert, feels good. Looks comfortable, no fevers. INDWELLINGS: Right chest Perm-A-Cath, left upper extremity AV fistula. MICROBIOLOGY: Urine culture growing yeast, not [place] albicans. ANTIMICROBIALS: The patient is on gentamicin and Vfend. PHYSICAL EXAMINATION: GENERAL: This is a well-nourished, well-developed young man who is alert, in no distress. HEENT: Head atraumatic, normocephalic. Sclerae anicteric. Buccal mucosa pink. NECK: Supple. CHEST: Rise symmetrical. Breath sounds clear. HEART: S1, S2. ABDOMEN: Soft, bowel tones present. EXTREMITIES: Without cyanosis. ASSESSMENT: 1. Resolving sepsis, present on admission. 2. Recurrent urinary tract infection secondary to neurogenic bladder. 3. End-stage renal disease. 4. Diabetes. PLAN: Remains stable. Continue present care, ok dc on Vfend for 6 more days DW pt/staff Problems: Consultation Date/Type/Reason Admit Date/Time Sep 10, 2017 at 23:06 Initial Consult Date 09/09/17 Type of Consultation: ID Exam/Review of Systems Vital Signs Vitals Vital Signs Date Time Temp Pulse Resp B/P Pulse Ox O2 Delivery O2 Flow Rate FiO2 09/11/17 13:57 98.5 82 18 120/72 98 09/08/17 00:11 21 09/07/17 20:26 Room Air 09/07/17 15:00 2.0 Intake and Output 09/10/17 09/10/17 09/11/17 15:00 23:00 07:00 Intake Total 920 ml 400 ml Output Total 700 ml 750 ml Balance 220 ml -350 ml Results Result Diagram: 09/11/17 0514 09/11/17 0514 Results 24 hrs Laboratory Tests Test 09/10/17 20:23 09/11/17 05:14 09/11/17 05:57 09/11/17 09:06 Bedside Glucose 214 93 58 L White Blood Count 7.2 Red Blood Count 3.42 L Hemoglobin 10.9 L Hematocrit 31.9 L Mean Corpuscular Volume 93.3 Mean Corpuscular Hemoglobin 31.9 Mean Corpuscular Hemoglobin Concent 34.2 Red Cell Distribution Width 12.7 Platelet Count 268 Mean Platelet Volume 10.2 Neutrophils % 51.2 Lymphocytes % 37.7 Monocytes % 5.5 Eosinophils % 4.2 Basophils % 1.1 Nucleated Red Blood Cells % 0.0 Neutrophils # 3.7 Lymphocytes # 2.7 Monocytes # 0.4 Eosinophils # 0.3 Basophils # 0.1 Nucleated Red Blood Cells # 0.0 Sodium Level 144 Potassium Level 4.1 Chloride Level 108 Carbon Dioxide Level 21 Anion Gap 19 H Blood Urea Nitrogen 36 H Creatinine 4.42 H Glucose Level 112 # Calcium Level 9.3 Test 09/11/17 09:26 09/11/17 09:42 09/11/17 12:24 Bedside Glucose 66 L 99 144 TESS AGUILAR NP Sep 11, 2017 18:57
== END 2017-09-11 17:00 | disposition home or self-care (01) | DRG 872 ==
LOC: FTE 09:51 → INTOOBSV 13:03 → MS1 13:03 → OBSVTOIN 09-10 23:06
PROVIDERS: ADMIT Internal Medicine; ATTEND Internal Medicine
DX: A41.9 Sepsis, unspecified organism (principal); N10 Acute pyelonephritis; N31.9 Neuromuscular dysfunction of bladder, unspecified; E10.9 Type 1 diabetes mellitus without complications; F17.200 Nicotine dependence, unspecified, uncomplicated; B37.41 Candidal cystitis and urethritis; Z79.4 Long term (current) use of insulin; Z96.41 Presence of insulin pump (external) (internal); M54.5 Low back pain
CPT/HCPCS: 36415; 71010; 72100; 80048; 80053; 80061; 81001; 82962; 83036; 83605; 83735; 84100; 84439; 84443; 84484; 85025; 85610; 85730; 86704; 86709; 86803; 87040; 87081; 87086; 87340; 90935; 93005; 96374; 96375; 96376; 97162; 99217; G0378; J0692; J1170; J1335; J1580; J1644; J1815; J2060; J2270; J2405; J3250; J3370; J7030; J7070

== ENCOUNTER 2019-01-13 18:31 | Emergency (ER) | payer MEDICARE, OTHER ==
[~2019-01-13] VITALS: Ht 170.2 cm; Wt 56.7 kg
[~2019-01-13 18:31] MED LIST changes: +GEN20I CATHETER; +LACT1CAP47 PO; +LIDO700A45 TD; +METH-360 PO; +NEPH PO; -RENAVITE; -SULF1TAB31 PO; +VORI200T12 PO; -ZOF8 PO
[2019-01-13 18:34] VITALS: Ht 170.2 cm; Wt 56.7 kg
[2019-01-13] MEDS ORDERED: ONDANSETRON 4 MG INJ IV STA (19:12)
[2019-01-13] MEDS ORDERED: morphine 4 MG/ML VIAL IV STA (19:12)
[2019-01-13] MEDS ORDERED: SOD CHLORIDE 0.9% 1,000 ML IV STA (19:12)
[2019-01-13] MEDS ORDERED: CEFTRIAXONE 1 GM/50 ML (PMX) 50 ML IVPB ONE (21:30)
--- NOTE | 2019-01-13 21:54 | ERD ---
ER Documentation Chief Complaint Chief Complaint vomiting, back pain, cwp x's 2 weeks HPI 23-year-old male with a history of type 1 diabetes presenting with vomiting and lower back pain. He has had symptoms intermittently for about 2 weeks. He was seen last week at another hospital and diagnosed with a UTI. Patient states that he does self catheterizations at home. He was put on a trial of antibiotics without improvement of his symptoms. He denies any dysuria or hematuria but states that he does not usually feel this is he catheterizes at home. He has not experienced any fevers or chills. He does complain of nonbloody and nonbilious vomiting. He has aching lower back pain that is nonradiating, constant, 9 out of 10, with no alleviating or exacerbating factors. No constipation or diarrhea. Denies any significant abdominal pain. ROS All systems reviewed and are negative except as per history of present illness. Medications Home Meds Active Scripts Levofloxacin* (Levaquin*) 750 Mg Tablet, 750 MG PO DAILY for 5 Days, TAB Prov:TOSIN CUI MD 01/13/19 Voriconazole* (Vfend*) 200 Mg Tablet, 200 MG PO BID for 5 Days, #10 TAB Prov:JESSICA WITT MD 09/11/17 Lidocaine (Lidocaine) 1 Each Adh..patch, 1 PATCH TD DAILY for 30 Days, #30 PATCH Prov:JESSICA WITT MD 09/11/17 Reported Medications Gentamicin Sulfate* (Gentamicin Sulfate* Inj) 10 Mg/Ml Soln, 1 DOSE CATHETER Q3H, VIAL GENTAMYCIN FLUSH VIA CATHER (BLADDER) RINSE AND FLUSH AREA EVERY 3 HOURS AROUND THE CLOCKPER PT 09/07/17 Lactobacillus Acidophilus (Probiotic) 1 Each Capsule, 1 CAP PO DAILY, CAP 09/07/17 Methylcellulose (FIBER) 500 Mg Tablet, 500 MG PO PC LUNCH, TAB 09/07/17 Multivit/Ca Carb/B Cmplx/Fa* (Harini-Michael*) 1 Tab Tab, 1 TAB PO DAILY, TAB 09/07/17 Sodium Bicarbonate* (Sodium Bicarbonate*) 650 Mg Tablet, 650 MG PO DAILY, TAB 02/22/17 Loperamide Hcl* (Imodium*) 2 Mg Capsule, 6 MG PO PC DINNER PRN for DIARRHEA, CAP MAX 16 mg/day 3/15/17 Ferrous Sulfate* (Ferrous Sulfate*) 325 Mg Tabec, 325 MG PO TID, TAB 06/10/16 Insulin* PUMP (Insulin* PUMP) 1 Each Pump.resvr, 1 EACH MC . DIRECTED, EA 05/18/15 Allergies Allergies: Coded Allergies: No Known Allergy (Verified , 09/07/17) PMhx/Soc History of Surgery: Yes (LEFT PINKIE, LEFT FOOT ) Anesthesia Reaction: No Hx Neurological Disorder: No Hx Respiratory Disorders: No Hx Cardiac Disorders: Yes (HTN ) Hx Psychiatric Problems: No Hx Miscellaneous Medical Probl: Yes (ESKD, DM I) Hx Alcohol Use: No Hx Substance Use: Yes (MARIJUANA ) Hx Tobacco Use: No Smoking Status: Never smoker FmHx Family History: No diabetes Physical Exam Vitals Vital Signs Date Temp Pulse Resp B/P (MAP) Pulse Ox O2 O2 Flow FiO2 Time Delivery Rate 01/13/19 84 16 155/104 98 Room Air 22:37 (121) 01/13/19 98.3 79 20 166/109 100 Room Air 20:30 (128) 01/13/19 98.0 94 20 108/76 100 18:34 (87) Physical Exam Const: In mild distress due to nausea, retching Head: Atraumatic Eyes: Normal Conjunctiva ENT: Dry mucous membranes. Normal External Ears, Nose and Mouth. Neck: Full range of motion. No meningismus. Resp: Clear to auscultation bilaterally Cardio: Regular rate and rhythm, no murmurs Abd: Soft, non tender, non distended. Normal bowel sounds Skin: No petechiae or rashes Back: No midline or flank tenderness Ext: No cyanosis, or edema Neur: Awake and alert, no facial asymmetry, normal speech, mentating normally, moving all extremities Psych: Normal Mood and Affect Result Diagram: 01/13/19192301/13/191923 Results 24 hrs Laboratory Tests Test 01/13/19 19:24 01/13/19 20:03 01/13/19 22:03 White Blood Count 9.2 10^3/ul Red Blood Count . 10^6/ul Hemoglobin 12.9 g/dl Hematocrit 37.4 % Mean Corpuscular Volume 89.3 fl Mean Corpuscular Hemoglobin 30.8 pg Mean Corpuscular 34.5 g/dl Hemoglobin Concent Red Cell Distribution Width 12.5 % Platelet Count 276 10^3/UL Mean Platelet Volume 10.6 fl Immature Granulocytes % 0.500 % Neutrophils % 68.8 % Lymphocytes % 23.4 % Monocytes % 5.0 % Eosinophils % 1.5 % Basophils % 0.8 % Nucleated Red Blood Cells % 0.0 /100WBC Immature Granulocytes # 0.050 10^3/ul Neutrophils # 6.3 10^3/ul Lymphocytes # 2.1 10^3/ul Monocytes # 0.5 10^3/ul Eosinophils # 0.1 10^3/ul Basophils # 0.1 10^3/ul Nucleated Red Blood Cells # 0.0 10^3/ul Urine Color YELLOW Urine Clarity SLIGHTLY CLOUDY Urine pH 8.0 Urine Specific [place] 1.012 Urine Ketones NEGATIVE mg/dL Urine Nitrite NEGATIVE mg/dL Urine Bilirubin NEGATIVE mg/dL Urine Urobilinogen NEGATIVE mg/dL Urine Leukocyte Esterase 3+ Elian/ul Urine Microscopic RBC 13 /HPF Urine Microscopic WBC > 182 /HPF Urine Bacteria FEW /HPF Urine Hemoglobin NEGATIVE mg/dL Urine Glucose 3+ mg/dL Urine Total Protein 3+ mg/dl Sodium Level 139 mmol/L Potassium Level 3.8 mmol/L Chloride Level 99 mmol/L Carbon Dioxide Level 27 mmol/L Anion Gap 13 Blood Urea Nitrogen 31 mg/dl Creatinine 4.55 mg/dl Est Glomerular Filtrat 16 mL/min Rate mL/min Glucose Level 122 mg/dl Calcium Level 9.5 mg/dl Total Bilirubin 0.4 mg/dl Direct Bilirubin 0.00 mg/dl Indirect Bilirubin 0.4 mg/dl Aspartate Amino Transf (AST/SGOT) 28 IU/L Alanine 24 IU/L Aminotransferase (ALT/SGPT) Alkaline Phosphatase 99 IU/L Total Protein 7.9 g/dl Albumin 4.3 g/dl Globulin 3.60 g/dl Albumin/Globulin Ratio 1.19 Lipase 159 U/L Bedside Glucose 110 mg/dL 88 mg/dL Current Medications Medications Dose Sig/Devika Start Time Status Last (Trade) Ordered Route PRN Stop Time Admin Dose Reason Admin Sodium 1,000 ml @ Q1H STAT 01/13/19 DC Chloride 1,000 mls/hr IV 19:12 01/13/19 19:32 Morphine 4 mg ONCE STAT 01/13/19 DC 01/13/19 Sulfate IV 19:12 19:46 (morphine) 01/13/19 19:13 Ondansetron 4 mg ONCE STAT 01/13/19 DC 01/13/19 HCl (Zofran IV 19:12 19:46 Inj) 01/13/19 19:13 Ceftriaxone 50 ml @ ONCE ONCE 01/13/19 DC 01/13/19 Sodium 100 mls/hr IVPB 21:30 21:26 01/13/19 21:59 1 tab ONCE ONCE 01/13/19 DC 01/13/19 Acetaminophen PO 22:00 22:09 / 01/13/19 22:01 Hydrocodone Bitart ([place] (5/325)) 10 mg ONCE ONCE 01/13/19 DC 01/13/19 Metoclopramid IV 22:00 22:09 e HCl 01/13/19 22:01 (Reglan) Procedures/MDM EMERGENT LABS AND DIAGNOSTIC STUDIES: Lab Results above were reviewed and interpreted by me. CBC: no anemia or evidence of infection CMP: Evidence of chronic kidney disease. No evidence of clinically significant electrolyte abnormality, acidosis, hypoglycemia, DKA, liver disease, or biliary obstruction Lipase: no evidence of pancreatitis UA: Findings consistent with acute infection Radiology Results as interpreted by Radiology below were reviewed by Shannon Cui MD: Chest x-ray shows no acute abnormalities Initial Nursing notes reviewed. Previous Medical Records requested via the Electronic Health Record. EMERGENCY DEPARTMENT COURSE / MEDICAL DECISION MAKING: This is a diabetic patient presenting with nausea and vomiting. Labs were done and do not show any evidence of DKA, a problem which the patient has been admitted for in the past. Exam is not consistent with an acute surgical abdomen. His urinalysis did show evidence of a UTI. As he has been on outpatient antibiotics without relief of his symptoms, I did offer the patient admission versus discharge with different antibiotics. At this time there is no evidence of sepsis, so I feel comfortable with a trial of a different antibiotic until the urine cultures come back. Patient feels more comfortable going home at this time. He has been given IV fluids and antiemetics here with improvement of his symptoms. He has multiple antiemetics at home and declined any further prescription. I recommended a trial of Levaquin for home. Return precautions were discussed. Advised to return for any worsening symptoms or if he is not improving as expected. Patient's blood pressure was elevated (>120/80) but appears stable without evidence of hypertensive emergency or urgency. The patient was counseled about the risks of hypertension and urged to pursue outpatient monitoring and therapy within a week with their primary care physician. Departure Diagnosis: Primary Impression: UTI (urinary tract infection) Urinary tract infection type: site unspecified Hematuria presence: without hematuria Qualified Codes: N39.0 - Urinary tract infection, site not specified Additional Impression: Vomiting Vomiting type: unspecified Vomiting Intractability: non-intractable Nausea presence: with nausea Qualified Codes: R11.2 - Nausea with vomitin g, unspecified Condition: Fair TOSIN CUI MD Jan 13, 2019 21:54
[2019-01-13] MEDS ORDERED: HYDROCODONE/APAP (5/325) TAB PO ONE (22:00)
[2019-01-13] MEDS ORDERED: METOCLOPRAMIDE 10 MG INJ IV ONE (22:00)
[2019-01-13] MEDS ORDERED: LEVO750T25 PO (22:17)
[2019-01-13 22:37] VITALS: BP 155/104; PULSE 84; RESP 16
== END 2019-01-13 22:37 | disposition home or self-care (01) ==
LOC: FTE 18:31 → E/R 22:37
DX: N39.0 Urinary tract infection, site not specified (principal); I10 Essential (primary) hypertension; E10.9 Type 1 diabetes mellitus without complications; R07.89 Other chest pain; Z79.4 Long term (current) use of insulin
CPT/HCPCS: 36415; 71045; 80053; 81001; 82962; 83690; 85025; 87086; 96374; 96375; 99284; J0696; J2270; J2405; J2765; J7030